=== PATIENT | male | born 1950 | race Hispanic/Latino ===

== ENCOUNTER 2020-11-15 05:57 | Inpatient (IN) | payer MEDICARE ==
[2020-11-15] MEDS ORDERED: NON-FORMULARY EACH (Melatonin [Melatonin 3mg Tab] 3 MG Tablet) PO PRN (10:00)
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
[2020-11-15 11:44] LABS: Basophils # (Auto) 0.1 K/mm3 (0.0-0.1); Basophils % (Auto) 0.7 % (0.0-1.8); Eosinophils # (Auto) 0.1 K/mm3 (0.0-0.4); Eosinophils % (Auto) 0.9 % (0.0-4.3); Hematocrit 46.6 % (35.5-45.6); Hemoglobin 15.5 gm/dl (11.8-15.2); Lymphocytes # (Auto) 2.2 K/mm3 (1.2-5.4); Lymphocytes % (Auto) 26.9 % (13.4-35.0); Mean Corpuscular HGB Conc 33 % (32-34); Mean Corpuscular Volume 85 fl (84-94); Monocytes # (Auto) 0.8 K/mm3 (0.0-0.8); Monocytes % (Auto) 9.4 % (0.0-7.3); Platelet Count 310 K/mm3 (140-440); Red Blood Count 5.51 M/mm3 (3.65-5.03); Red Cell Distribution Width 14.2 % (13.2-15.2)
[2020-11-15 12:03] LABS: Alanine Aminotransferase 16 units/L (7-56); BUN/Creatinine Ratio 20; Blood Urea Nitrogen 20 mg/dL (9-20); Calcium 9.2 mg/dL (8.4-10.2); Chol/HDL Ratio 3.33 %; HDL Cholesterol 57 mg/dL (40-59); Hemolysis Index 6; LDL Cholesterol,Direct 108 mg/dL (50-130)
[2020-11-15] MEDS ORDERED: risperiDONE 1 MG TAB PO SCH (22:00)
[2020-11-15] MEDS ORDERED: NON-FORMULARY EACH (Gabapentin [Neurontin] 600 MG Tablet) PO SCH (22:00)
[2020-11-15] MEDS: traZODone 50 MG TAB PO SCH (22:25)
[2020-11-15] MEDS: GABAPENTIN 300 MG CAP PO SCH (22:27)
--- NOTE | 2020-11-16 08:37 | Progress Note ---
Subjective Date of service: 11/16/20 Principal diagnosis: (1) Schizophrenia in remission Subjective Comment: Zoe Nurse: Since patient's admission he has spent his time in the activity watching tv and interacting with his peers. He presents as happy and content. His appetite is good. Patient is medication compliant. Will continue to monitor patient for safety. Psych Progress Patient presents as euthymic, appears to be in a great mood, excessively compl imenting me and smilling then patient began to ask me questions about what you call in a hole in a heart since "I am a doctor", he then said or maybe in aorta. Patient states I look really good, but i redirected patient to eat his food. Reason for continuing acute in patient psychiatric hospitalization: hx of sudden unprovoked agitated behv, endorses hearing voices, complicated by dementia, will need to observe and monitor for mood stability REVIEW OF SYSTEMS Constitutional: Negative for weight loss ENT: Negative for stridor Respiratory: Negative for cough or hemoptysis All other systems reviewed and are negative MENTAL STATUS EXAMINATION General Appearance and Behavior: Age appropriate, good hygiene, wearing appropriate clothes, poor eye contact, cooperative with questioning. Cooperation: Engaged Psychomotor Behavior: Psychomotor normal Mood: so-so Affect and affective range: congruent with mood Thought Process:illogical Thought Content: visual Hallucinations Speech: Normal rate volume and rythm Intellectual Functioning: normal Suicidal Ideation: Denies SI Homicidal Ideation: denies Impulse Control: Impaired Insight and Judgment: Impaired Memory: Short term memory normal Attention: Divided attention impaired Orientation: Alert, oriented Assessment and Plan - Psychiatric problem (1) Schizophrenia in remission Current Visit: Yes Status: Acute F20.9 Treatment Plan Risperidone inceased to 1mg BID Patient admitted for inpatient psychiatric evaluation, medication adjustment and close monitoring The patient's behavior, mood, sleep and appetite will be closely monitored. Patient enrolled in individual and group therapeutic sessions and encouraged to attend. Patient provided with a safe and structured environment. Patient's physical health needs will be addressed by the Hospitalist. Hospitalist Consulted Labs including CBC, CMP, Lipid profile and Hemoglobin A1C levels ordered for baseline reference Social Assessment will be completed and the Coordinator Of Library Services will work with patient and family to ensure a suitable and safe disposition Medication adjustment will be made as clinically indicated Usual Wellness Religion/Preservation: - Start Trazodone 50 mg po QHS & 50 mg po QHS PRN between 10 PM & 2 AM for insomnia - Start Melatonin 5 mg po QHS to promote circadian rhythm - Start [place]-3 for brain health, reduce impulsivity, and as adjunctive treatment for mood disorder, continue upon discharge given overall benefits. - Start B1 prophylaxis with 200 mg po for 5 days The patient agreed on the treatment plan, understood the risk, benefit, alternative treatment, potential consequence of no treatment, and gave informed consent. Initial Certification Inpatient psych services: I certify that the inpatient psychiatric services are required for treatment that could reasonably be expected to improve the patient's condition. Estimated days: 6 Post hospital care: primary care provider, psychiatric provider Legal Status: Voluntary Reaction to Hospitalization: Accepting Medications and Allergies Allergies Allergy/AdvReac Type Severity Reaction Status Date / Time No Known Allergies Allergy Verified 11/03/17 10:49 Home Medications Medication Instructions Recorded Confirmed Last Taken Type Acetaminophen [Tylenol Extra 1,000 mg PO Q8HR PRN 11/13/20 11/15/20 Unknown History Strength] Calcium Carbonate/Vitamin D3 1 each PO Q12HR 11/13/20 11/15/20 Unknown History [Calcium 500 mg Chewable Tablet] Cholecalciferol (Vitamin D3) 5,000 unit PO ONCE 11/13/20 11/15/20 Unknown History [Vitamin D3] Donepezil HCl [Donepezil HCl Odt] 10 mg PO QHS 11/13/20 11/15/20 Unknown History Furosemide [Lasix] 20 mg PO QDAY 11/13/20 11/15/20 Unknown History Gabapentin [Neurontin] 300 mg PO QHS 11/13/20 11/15/20 Unknown History Levothyroxine [Synthroid] 25 mcg PO QAM 11/13/20 11/15/20 Unknown History Magnesium Hydroxide [Milk of 30 ml PO Q8HR PRN 11/13/20 11/15/20 Unknown History Magnesia] Melatonin [Melatonin 3MG TAB] 3 mg PO Q24HR PRN 11/13/20 11/15/20 Unknown History Memantine [Namenda] 10 mg PO BID 11/13/20 11/15/20 Unknown History Polyethylene Glycol 1450 17 gm MC QDAY PRN 11/13/20 11/15/20 Unknown History Potassium Chloride [K-Dur] 10 meq PO QDAY 11/13/20 11/15/20 Unknown History risperiDONE [RisperDAL] 0.5 mg PO QHS 11/13/20 11/15/20 Unknown History Active Meds: Active Medications Gabapentin (Gabapentin 300 Mg Cap) 300 mg PO QHS [facility] Last Admin: 11/15/20 22:27 Dose: 300 mg Documented by: Levothyroxine Sodium (Levothyroxine 25 Mcg Tab) 50 mcg PO QAM [facility] Miscellaneous Medication (Melatonin [Melatonin 3mg Tab]) 3 mg PO Q24HR PRN PRN Reason: Insomnia Risperidone (Risperidone 1 Mg Tab) 1 mg PO QHS [facility] Last Admin: 11/15/20 22:25 Dose: 1 mg Documented by: Trazodone HCl (Trazodone 50 Mg Tab) 50 mg PO QHS [facility] Last Admin: 11/15/20 22:25 Dose: 50 mg Documented by: Results - Results Labs/Vitals: Laboratory Last Values WBC 8.1 K/mm3 (4.5-11.0) 11/15/20 10:44 RBC 5.51 M/mm3 (3.65-5.03) H 11/15/20 10:44 Hgb 15.5 gm/dl (11.8-15.2) H 11/15/20 10:44 Hct 46.6 % (35.5-45.6) H 11/15/20 10:44 MCV 85 fl (84-94) 11/15/20 10:44 MCH 28 pg (28-32) 11/15/20 10:44 MCHC 33 % (32-34) 11/15/20 10:44 RDW 14.2 % (13.2-15.2) 11/15/20 10:44 Plt Count 310 K/mm3 (140-440) 11/15/20 10:44 Lymph % (Auto) 26.9 % (13.4-35.0) 11/15/20 10:44 [place] % (Auto) 9.4 % (0.0-7.3) H 11/15/20 10:44 Eos % (Auto) 0.9 % (0.0-4.3) 11/15/20 10:44 Baso % (Auto) 0.7 % (0.0-1.8) 11/15/20 10:44 Lymph # (Auto) 2.2 K/mm3 (1.2-5.4) 11/15/20 10:44 [place] # (Auto) 0.8 K/mm3 (0.0-0.8) 11/15/20 10:44 Eos # (Auto) 0.1 K/mm3 (0.0-0.4) 11/15/20 10:44 Baso # (Auto) 0.1 K/mm3 (0.0-0.1) 11/15/20 10:44 Seg Neutrophils % 62.1 % (40.0-70.0) 11/15/20 10:44 Seg Neutrophils # 5.1 K/mm3 (1.8-7.7) 11/15/20 10:44 Sodium 137 mmol/L (137-145) 11/15/20 10:44 Potassium 3.9 mmol/L (3.6-5.0) 11/15/20 10:44 Chloride 99.9 mmol/L (98-107) 11/15/20 10:44 Carbon Dioxide 27 mmol/L (22-30) 11/15/20 10:44 Anion Gap 14 mmol/L 11/15/20 10:44 BUN 20 mg/dL (9-20) 11/15/20 10:44 Creatinine 1.0 mg/dL (0.8-1.3) 11/15/20 10:44 Estimated GFR > 60 ml/min 11/15/20 10:44 BUN/Creatinine Ratio 20 % 11/15/20 10:44 Glucose 114 mg/dL (75-100) H 11/15/20 10:44 POC Glucose 131 mg/dL (70-105) H 11/15/20 08:42 Hemoglobin A1c 5.5 % (4-6) 11/15/20 10:44 Calcium 9.2 mg/dL (8.4-10.2) 11/15/20 10:44 Total Bilirubin 0.30 mg/dL (0.1-1.2) 11/15/20 10:44 AST 19 units/L (5-40) 11/15/20 10:44 ALT 16 units/L (7-56) 11/15/20 10:44 Alkaline Phosphatase 85 units/L (35-129) 11/15/20 10:44 Total Protein 7.2 g/dL (6.3-8.2) 11/15/20 10:44 Albumin 4.0 g/dL (3.9-5) 11/15/20 10:44 Albumin/Globulin Ratio 1.3 % 11/15/20 10:44 Triglycerides 183 mg/dL (2-149) H 11/15/20 10:44 Cholesterol 190 mg/dL (50-199) 11/15/20 10:44 LDL Cholesterol Direct 108 mg/dL (50-130) 11/15/20 10:44 HDL Cholesterol 57 mg/dL (40-59) 11/15/20 10:44 Cholesterol/HDL Ratio 3.33 % 11/15/20 10:44 TSH 6.840 mlU/mL (0.270-4.200) H 11/15/20 10:44 Last Vital Signs Temp 98.7 F 11/15/20 19:36 Pulse 69 11/15/20 19:36 Resp 20 11/15/20 19:36 BP 121/64 11/15/20 19:36 Pulse Ox 95 11/15/20 19:36
[2020-11-16] MEDS: LEVOTHYROXINE 25 MCG TAB PO SCH (09:14)
[2020-11-16] MEDS: risperiDONE 1 MG TAB PO SCH ×2 (09:14→21:48)
[2020-11-16] MEDS ORDERED: ACETAMINOPHEN 500 MG PO PRN (10:46)
--- NOTE | 2020-11-16 10:46 | Consultation ---
History of Present Illness - Reason for Consult Consult date: 11/15/20 Medical Management Requesting physician: MACARIO REYNOSO - History of Present Illness 70 YO Male with Vascular Dementia with Behavioral Disturbance, Cerebral Atherosclerosis, HTN, CKD, GERD, Bipolar Disorder, Schizophrenia, Hypothyroidism, Chronic Constipation currently on bowel regimen. Pt admitted to [facility] for Psychiatric stabilization. Consult placed by Dr. Reynoso for Psychiatric stabilization. Patient seen and evaluated in his room. Patient denies fever, chills, chest pain, palpitation productive cough, skin rash, recent ill contacts or known exposure to COVID-19. No reported nursing events. Past History Past Medical History: GERD, hypertension, hypothyroidism Past Surgical History: No surgical history, Other (Reviewed) Social history: single. denies: smoking, alcohol abuse Family history: hypertension Medications and Allergies Allergies Allergy/AdvReac Type Severity Reaction Status Date / Time No Known Allergies Allergy Verified 11/03/17 10:49 Home Medications Medication Instructions Recorded Confirmed Last Taken Type Acetaminophen [Tylenol Extra 1,000 mg PO Q8HR PRN 11/13/20 11/15/20 Unknown History Strength] Calcium Carbonate/Vitamin D3 1 each PO Q12HR 11/13/20 11/15/20 Unknown History [Calcium 500 mg Chewable Tablet] Cholecalciferol (Vitamin D3) 5,000 unit PO ONCE 11/13/20 11/15/20 Unknown History [Vitamin D3] Donepezil HCl [Donepezil HCl Odt] 10 mg PO QHS 11/13/20 11/15/20 Unknown History Furosemide [Lasix] 20 mg PO QDAY 11/13/20 11/15/20 Unknown History Gabapentin [Neurontin] 300 mg PO QHS 11/13/20 11/15/20 Unknown History Levothyroxine [Synthroid] 25 mcg PO QAM 11/13/20 11/15/20 Unknown History Magnesium Hydroxide [Milk of 30 ml PO Q8HR PRN 11/13/20 11/15/20 Unknown History Magnesia] Melatonin [Melatonin 3MG TAB] 3 mg PO Q24HR PRN 11/13/20 11/15/20 Unknown History Memantine [Namenda] 10 mg PO BID 11/13/20 11/15/20 Unknown History Polyethylene Glycol 1450 17 gm MC QDAY PRN 11/13/20 11/15/20 Unknown History Potassium Chloride [K-Dur] 10 meq PO QDAY 11/13/20 11/15/20 Unknown History risperiDONE [RisperDAL] 0.5 mg PO QHS 11/13/20 11/15/20 Unknown History Active Meds: Active Medications Gabapentin (Gabapentin 300 Mg Cap) 300 mg PO QHS [facility] Last Admin: 11/15/20 22:27 Dose: 300 mg Documented by: Levothyroxine Sodium (Levothyroxine 25 Mcg Tab) 50 mcg PO 0600 [facility] Last Admin: 11/16/20 09:14 Dose: 50 mcg Documented by: Miscellaneous Medication (Melatonin [Melatonin 3mg Tab]) 3 mg PO Q24HR PRN PRN Reason: Insomnia Risperidone (Risperidone 1 Mg Tab) 1 mg PO BID [facility] Last Admin: 11/16/20 09:14 Dose: 1 mg Documented by: Trazodone HCl (Trazodone 50 Mg Tab) 50 mg PO QHS [facility] Last Admin: 11/15/20 22:25 Dose: 50 mg Documented by: Review of Systems Constitutional: no weight loss, no fever, no chills, no sweats Ears, nose, mouth and throat: no ear pain, no ear discharge, no decreased hearing, no nose pain, no nasal congestion Cardiovascular: no chest pain, no palpitations Respiratory: no cough, no cough with sputum, no excessive sputum, no hemoptysis Gastrointestinal: no abdominal pain, no nausea, no diarrhea Genitourinary Male: no hematuria, no flank pain, no urinary frequency, no urinary hesitancy, no incontinence Rectal: no pain, no incontinence Musculoskeletal: no neck pain, no shooting arm pain, no low back pain Integumentary: no rash, no redness, no sores, no jaundice Neurological: no head injury, no weakness, no parathesias, no tingling, no seizures Endocrine: no cold intolerance, no heat intolerance, no excessive thirst, no polyuria, no nocturia Hematologic/Lymphatic: no lymphadenopathy Allergic/Immunologic: no allergic rhinitis Exam - Constitutional Vitals: Temp Pulse Resp BP Pulse Ox 98.7 F 69 20 121/64 95 11/15/20 19:36 11/15/20 19:36 11/15/20 19:36 11/15/20 19:36 11/15/20 19:36 General appearance: Present: no acute distress, well-nourished - EENT Eyes: Present: PERRL ENT: hearing intact, clear oral mucosa - Neck Neck: Present: supple, normal ROM - Respiratory Respiratory effort: normal Respiratory: bilateral: CTA - Cardiovascular Heart Sounds: Present: S1 & S2. Absent: rub, click - Extremities Extremities: pulses symmetrical, No edema Peripheral Pulses: within normal limits - Abdominal General gastrointestinal: Present: soft, non-tender, non-distended, normal bowel sounds Male genitourinary: Present: normal - Integumentary Integumentary: Present: clear, warm, dry - Musculoskeletal Musculoskeletal: gait normal, strength equal bilaterally - Psychiatric Psychiatric: appropriate mood/affect, intact judgment & insight - Neurologic Neurologic: CNII-XII intact, moves all extremities Results - Labs CBC & Chem 7: 11/15/20 10:44 11/15/20 10:44 Labs: Abnormal lab results 11/15/20 11/15/20 11/15/20 Range/Units 08:42 10:44 10:44 RBC 5.51 H (3.65-5.03) M/mm3 Hgb 15.5 H (11.8-15.2) gm/dl Hct 46.6 H (35.5-45.6) % [place] % (Auto) 9.4 H (0.0-7.3) % Glucose 114 H (75-100) mg/dL POC Glucose 131 H (70-105) mg/dL Triglycerides 183 H (2-149) mg/dL TSH (0.270-4.200) mlU/mL 11/15/20 Range/Units 10:44 RBC (3.65-5.03) M/mm3 Hgb (11.8-15.2) gm/dl Hct (35.5-45.6) % [place] % (Auto) (0.0-7.3) % Glucose (75-100) mg/dL POC Glucose (70-105) mg/dL Triglycerides (2-149) mg/dL TSH 6.840 H (0.270-4.200) mlU/mL Assessment and Plan - Patient Problems (1) Vascular dementia with behavioral disturbance Current Visit: Yes Status: Acute Plan to address problem: Verbal prompting, verbal redirection, supportive care, benzodiazepine therapy as clinically indicated. (2) Cerebral atherosclerosis Current Visit: Yes Status: Acute Plan to address problem: Risk factor reduction therapy, antiplatelet therapy, supportive care. (3) Hypertension Current Visit: Yes Status: Acute Qualifiers: Hypertension type: essential hypertension Qualified Code(s): I10 - Essential (primary) hypertension Plan to address problem: Monitor blood pressure every shift, continue medical management. (4) CKD (chronic kidney disease) Current Visit: Yes Status: Acute Plan to address problem: Continue medical management, supportive care. Outpatient nephrology follow-up. (5) GERD (gastroesophageal reflux disease) Current Visit: Yes Status: Acute Qualifiers: Esophagitis presence: without esophagitis Qualified Code(s): K21.9 - Gastro-esophageal reflux disease without esophagitis Plan to address problem: PPI therapy, supportive care. [place] diet.
[2020-11-16] MEDS ORDERED: MAGNESIUM HYDROXIDE (MOM) ORAL LIQD UDC PO PRN (16:00)
[2020-11-16] MEDS ORDERED: ACETAMINOPHEN 500 MG TAB PO PRN (16:00)
[2020-11-16] MEDS: CHOLECALCIFEROL (VIT D3) 5,000 UNIT TAB PO SCH (17:46)
[2020-11-16] MEDS ORDERED: POLYETHYLENE GLYCOL 3350 17 GM POWDER PO PRN (21:33)
[2020-11-16] MEDS: GABAPENTIN 300 MG CAP PO SCH (21:48)
[2020-11-16] MEDS: DONEPEZIL 10 MG TAB PO SCH (21:48)
[2020-11-16] MEDS: MEMANTINE 10 MG TAB PO SCH (21:48)
[2020-11-16] MEDS: traZODone 50 MG TAB PO SCH (21:48)
[2020-11-16] MEDS ORDERED: NON-FORMULARY EACH (Donepezil Hcl [Donepezil Hcl Odt] 10 MG Tab.Rapdis) PO SCH (22:00)
[2020-11-16] MEDS: CALCIUM CARBONATE/VITAMIN D3 500 MG-200 UNIT TAB PO SCH (22:15)
[2020-11-17] MEDS: LEVOTHYROXINE 25 MCG TAB PO SCH (05:58)
--- NOTE | 2020-11-17 08:40 | Progress Note ---
Subjective Date of service: 11/17/20 Principal diagnosis: (1) Schizophrenia in remission Subjective Comment: [facility] Nurse:Last evening the patient spent in the activity room interacting with his peers. He presents as superficially bright. He denies si/hi/ah/vh. Patient has a good appetite and he is medication compliant. Overnight the patient rested quietly and slept 8 hours. Will continue to monitor patient for safety. Psych Progress Patient seen this a.m., patient enjoying breakfast states breakfast has been very good, patient complemented me stating that I am looking good she is in which mid to basal life if possible I asked patient what that means patient will be unable to explain. Patient does state that he knows he needs to take a shower this a.m. again patient is observed with biology and human based organ systems, today patient is talking about the eyes. Talks about about blurry vision when waking up, that clears away, then the concept of seeing, images, colors etc. Reason for continuing acute in patient psychiatric hospitalization: hx of sudden unprovoked agitated behv, endorses hearing voices, complicated by dementia, will need to observe and monitor for mood stability REVIEW OF SYSTEMS Constitutional: Negative for weight loss ENT: Negative for stridor Respiratory: Negative for cough or hemoptysis All other systems reviewed and are negative MENTAL STATUS EXAMINATION General Appearance and Behavior: Age appropriate, good hygiene, wearing appropriate clothes, poor eye contact, cooperative with questioning. Cooperation: Engaged Psychomotor Behavior: Psychomotor normal Mood: so-so Affect and affective range: congruent with mood Thought Process:illogical Thought Content: visual Hallucinations Speech: Normal rate volume and rythm Intellectual Functioning: normal Suicidal Ideation: Denies SI Homicidal Ideation: denies Impulse Control: Impaired Insight and Judgment: Impaired Memory: Short term memory normal Attention: Divided attention impaired Orientation: Alert, oriented Assessment and Plan - Psychiatric problem (1) Schizophrenia in remission Current Visit: Yes Status: Acute F20.9 Treatment Plan [place] risperidone Patient admitted for inpatient psychiatric evaluation, medication adjustment and close monitoring The patient's behavior, mood, sleep and appetite will be closely monitored. Patient enrolled in individual and group therapeutic sessions and encouraged to attend. Patient provided with a safe and structured environment. Patient's physical health needs will be addressed by the Hospitalist. Hospitalist Consulted Labs including CBC, CMP, Lipid profile and Hemoglobin A1C levels ordered for baseline reference Social Assessment will be completed and the Purse Framer will work with patient and family to ensure a suitable and safe disposition Medication adjustment will be made as clinically indicated Usual Wellness Cheondoism/Preservation: - Start Trazodone 50 mg po QHS & 50 mg po QHS PRN between 10 PM & 2 AM for insomnia - Start Melatonin 5 mg po QHS to promote circadian rhythm - Start [place]-3 for brain health, reduce impulsivity, and as adjunctive treatment for mood disorder, continue upon discharge given overall benefits. - Start B1 prophylaxis with 200 mg po for 5 days The patient agreed on the treatment plan, understood the risk, benefit, alternative treatment, potential consequence of no treatment, and gave informed consent. Initial Certification Inpatient psych services: I certify that the inpatient psychiatric services are required for treatment that could reasonably be expected to improve the patient's condition. Estimated days: Post hospital care: primary care provider, psychiatric provider Legal Status: Voluntary Reaction to Hospitalization: Accepting Medications and Allergies Allergies Allergy/AdvReac Type Severity Reaction Status Date / Time No Known Allergies Allergy Verified 11/03/17 10:49 Home Medications Medication Instructions Recorded Confirmed Last Taken Type Acetaminophen [Tylenol Extra 1,000 mg PO Q8HR PRN 11/13/20 11/15/20 Unknown History Strength] Calcium Carbonate/Vitamin D3 1 each PO Q12HR 11/13/20 11/15/20 Unknown History [Calcium 500 mg Chewable Tablet] Cholecalciferol (Vitamin D3) 5,000 unit PO ONCE 11/13/20 11/15/20 Unknown History [Vitamin D3] Donepezil HCl [Donepezil HCl Odt] 10 mg PO QHS 11/13/20 11/15/20 Unknown History Furosemide [Lasix] 20 mg PO QDAY 11/13/20 11/15/20 Unknown History Gabapentin [Neurontin] 300 mg PO QHS 11/13/20 11/15/20 Unknown History Levothyroxine [Synthroid] 25 mcg PO QAM 11/13/20 11/15/20 Unknown History Magnesium Hydroxide [Milk of 30 ml PO Q8HR PRN 11/13/20 11/15/20 Unknown History Magnesia] Melatonin [Melatonin 3MG TAB] 3 mg PO Q24HR PRN 11/13/20 11/15/20 Unknown History Memantine [Namenda] 10 mg PO BID 11/13/20 11/15/20 Unknown History Polyethylene Glycol 1450 17 gm MC QDAY PRN 11/13/20 11/15/20 Unknown History Potassium Chloride [K-Dur] 10 meq PO QDAY 11/13/20 11/15/20 Unknown History risperiDONE [RisperDAL] 0.5 mg PO QHS 11/13/20 11/15/20 Unknown History Active Meds: Active Medications Acetaminophen (Acetaminophen 500 Mg Tab) 1,000 mg PO Q8HR PRN PRN Reason: Pain , Severe (7-10) Calcium/Vitamin D (Calcium Carbonate/Vitamin D3 500 Mg-200 Unit Tab) 1 each PO Q12HR [facility] Last Admin: 11/16/20 22:15 Dose: 1 each Documented by: Cholecalciferol (Cholecalciferol (Vit D3) 5,000 Unit Tab) 5,000 unit PO DAILY [facility] Last Admin: 11/16/20 17:46 Dose: Not Given Documented by: Donepezil HCl (Donepezil 10 Mg Tab) 10 mg PO QHS [facility] Last Admin: 11/16/20 21:48 Dose: 10 mg Documented by: Furosemide (Furosemide 20 Mg Tab) 20 mg PO QDAY [facility] Gabapentin (Gabapentin 300 Mg Cap) 300 mg PO QHS [facility] Last Admin: 11/16/20 21:48 Dose: 300 mg Documented by: Levothyroxine Sodium (Levothyroxine 25 Mcg Tab) 50 mcg PO 0600 [facility] Last Admin: 11/17/20 05:58 Dose: 50 mcg Documented by: Magnesium Hydroxide (Magnesium Hydroxide (Mom) Oral Liqd Udc) 30 ml PO Q8HR PRN PRN Reason: Constipation Memantine (Memantine 10 Mg Tab) 10 mg PO BID [facility] Last Admin: 11/16/20 21:48 Dose: 10 mg Documented by: Miscellaneous Medication (Melatonin [Melatonin 3mg Tab]) 3 mg PO Q24HR PRN PRN Reason: Insomnia Polyethylene Glycol (Polyethylene Glycol 3350 17 Gm Powder) 17 gm PO QDAY PRN PRN Reason: Constipation Potassium Chloride (Potassium Chloride Er 10 Meq Tab) 10 meq PO QDAY [facility] Risperidone (Risperidone 1 Mg Tab) 1 mg PO BID [facility] Last Admin: 11/16/20 21:48 Dose: 1 mg Documented by: Trazodone HCl (Trazodone 50 Mg Tab) 50 mg PO QHS [facility] Last Admin: 11/16/20 21:48 Dose: 50 mg Documented by: Results - Results Labs/Vitals: Laboratory Last Values WBC 8.1 K/mm3 (4.5-11.0) 11/15/20 10:44 RBC 5.51 M/mm3 (3.65-5.03) H 11/15/20 10:44 Hgb 15.5 gm/dl (11.8-15.2) H 11/15/20 10:44 Hct 46.6 % (35.5-45.6) H 11/15/20 10:44 MCV 85 fl (84-94) 11/15/20 10:44 MCH 28 pg (28-32) 11/15/20 10:44 MCHC 33 % (32-34) 11/15/20 10:44 RDW 14.2 % (13.2-15.2) 11/15/20 10:44 Plt Count 310 K/mm3 (140-440) 11/15/20 10:44 Lymph % (Auto) 26.9 % (13.4-35.0) 11/15/20 10:44 [place] % (Auto) 9.4 % (0.0-7.3) H 11/15/20 10:44 Eos % (Auto) 0.9 % (0.0-4.3) 11/15/20 10:44 Baso % (Auto) 0.7 % (0.0-1.8) 11/15/20 10:44 Lymph # (Auto) 2.2 K/mm3 (1.2-5.4) 11/15/20 10:44 [place] # (Auto) 0.8 K/mm3 (0.0-0.8) 11/15/20 10:44 Eos # (Auto) 0.1 K/mm3 (0.0-0.4) 11/15/20 10:44 Baso # (Auto) 0.1 K/mm3 (0.0-0.1) 11/15/20 10:44 Seg Neutrophils % 62.1 % (40.0-70.0) 11/15/20 10:44 Seg Neutrophils # 5.1 K/mm3 (1.8-7.7) 11/15/20 10:44 Sodium 137 mmol/L (137-145) 11/15/20 10:44 Potassium 3.9 mmol/L (3.6-5.0) 11/15/20 10:44 Chloride 99.9 mmol/L (98-107) 11/15/20 10:44 Carbon Dioxide 27 mmol/L (22-30) 11/15/20 10:44 Anion Gap 14 mmol/L 11/15/20 10:44 BUN 20 mg/dL (9-20) 11/15/20 10:44 Creatinine 1.0 mg/dL (0.8-1.3) 11/15/20 10:44 Estimated GFR > 60 ml/min 11/15/20 10:44 BUN/Creatinine Ratio 20 % 11/15/20 10:44 Glucose 114 mg/dL (75-100) H 11/15/20 10:44 POC Glucose 131 mg/dL (70-105) H 11/15/20 08:42 Hemoglobin A1c 5.5 % (4-6) 11/15/20 10:44 Calcium 9.2 mg/dL (8.4-10.2) 11/15/20 10:44 Total Bilirubin 0.30 mg/dL (0.1-1.2) 11/15/20 10:44 AST 19 units/L (5-40) 11/15/20 10:44 ALT 16 units/L (7-56) 11/15/20 10:44 Alkaline Phosphatase 85 units/L (35-129) 11/15/20 10:44 Total Protein 7.2 g/dL (6.3-8.2) 11/15/20 10:44 Albumin 4.0 g/dL (3.9-5) 11/15/20 10:44 Albumin/Globulin Ratio 1.3 % 11/15/20 10:44 Triglycerides 183 mg/dL (2-149) H 11/15/20 10:44 Cholesterol 190 mg/dL (50-199) 11/15/20 10:44 LDL Cholesterol Direct 108 mg/dL (50-130) 11/15/20 10:44 HDL Cholesterol 57 mg/dL (40-59) 11/15/20 10:44 Cholesterol/HDL Ratio 3.33 % 11/15/20 10:44 TSH 6.840 mlU/mL (0.270-4.200) H 11/15/20 10:44 Last Vital Signs Temp 97.8 F 11/16/20 20:21 Pulse 72 11/16/20 20:21 Resp 20 11/16/20 20:21 BP 124/61 11/16/20 20:21 Pulse Ox 96 11/16/20 20:21
[2020-11-17] MEDS: risperiDONE 1 MG TAB PO SCH ×2 (10:25→22:10)
[2020-11-17] MEDS: MEMANTINE 10 MG TAB PO SCH ×2 (10:25→22:10)
[2020-11-17] MEDS: FUROSEMIDE 20 MG TAB PO SCH (10:25)
[2020-11-17] MEDS: CALCIUM CARBONATE/VITAMIN D3 500 MG-200 UNIT TAB PO SCH ×2 (10:42→22:10)
[2020-11-17] MEDS: POTASSIUM CHLORIDE ER 10 MEQ TAB PO SCH (10:42)
[2020-11-17] MEDS: CHOLECALCIFEROL (VIT D3) 5,000 UNIT TAB PO SCH (10:42)
[2020-11-17] MEDS: GABAPENTIN 300 MG CAP PO SCH (22:10)
[2020-11-17] MEDS: DONEPEZIL 10 MG TAB PO SCH (22:10)
[2020-11-17] MEDS: MELATONIN 5 MG TAB PO PRN (22:10)
[2020-11-17] MEDS: traZODone 50 MG TAB PO SCH (22:10)
[2020-11-18] MEDS: LEVOTHYROXINE 50 MCG TAB PO SCH (05:59)
--- NOTE | 2020-11-18 08:46 | Progress Note ---
Subjective Date of service: 11/18/20 Principal diagnosis: (1) Schizophrenia in remission Subjective Comment: [facility] Nurse:[id number] Pt spent most of the day in the activity room, pleasant, interacting with peers, but some times talking talking to himself. Denies SI/HI, med compliant. Staff will continue to monitor. Psych Progress Patient reports sleeping fine, says he is doing really good, likes everything and enjoying his meals. Patient asked why he talks to himself, or is he seeing someone talking to him. Patient reports he talks to himself, he says its because its freedom of speech, first ammendment and then started apologizing. He denies hearing voices. Reason for continuing acute in patient psychiatric hospitalization: So far no behvioral agitation, has been care compliant, though responds to internal stimulus talking to self, will need to observe and monitor for mood stability REVIEW OF SYSTEMS Constitutional: Negative for weight loss ENT: Negative for stridor Respiratory: Negative for cough or hemoptysis All other systems reviewed and are negative MENTAL STATUS EXAMINATION General Appearance and Behavior: Age appropriate, good hygiene, wearing appropriate clothes, poor eye contact, cooperative with questioning. Cooperation: Engaged Psychomotor Behavior: Psychomotor normal Mood: so-so Affect and affective range: congruent with mood Thought Process:illogical Thought Content: visual Hallucinations Speech: Normal rate volume and rythm Intellectual Functioning: normal Suicidal Ideation: Denies SI Homicidal Ideation: denies Impulse Control: Impaired Insight and Judgment: Impaired Memory: Short term memory normal Attention: Divided attention impaired Orientation: Alert, oriented Assessment and Plan - Psychiatric problem (1) Schizophrenia in remission Current Visit: Yes Status: Acute F20.9 Treatment Plan Continue risperidone Patient admitted for inpatient psychiatric evaluation, medication adjustment and close monitoring The patient's behavior, mood, sleep and appetite will be closely monitored. Patient enrolled in individual and group therapeutic sessions and encouraged to attend. Patient provided with a safe and structured environment. Patient's physical health needs will be addressed by the Hospitalist. Hospitalist Consulted Labs including CBC, CMP, Lipid profile and Hemoglobin A1C levels ordered for baseline reference Social Assessment will be completed and the Radiology Practitioner Assistant will work with patient and family to ensure a suitable and safe disposition Medication adjustment will be made as clinically indicated Usual Wellness Religious/Preservation: - Start Trazodone 50 mg po QHS & 50 mg po QHS PRN between 10 PM & 2 AM for insomnia - Start Melatonin 5 mg po QHS to promote circadian rhythm - Start [place]-3 for brain health, reduce impulsivity, and as adjunctive treatment for mood disorder, continue upon discharge given overall benefits. - Start B1 prophylaxis with 200 mg po for 5 days The patient agreed on the treatment plan, understood the risk, benefit, alternative treatment, potential consequence of no treatment, and gave informed consent. Initial Certification Inpatient psych services:5 I certify that the inpatient psychiatric services are required for treatment that could reasonably be expected to improve the patient's condition. Estimated days: Post hospital care: primary care provider, psychiatric provider Legal Status: Voluntary Reaction to Hospitalization: Accepting Medications and Allergies Allergies Allergy/AdvReac Type Severity Reaction Status Date / Time No Known Allergies Allergy Verified 11/03/17 10:49 Home Medications Medication Instructions Recorded Confirmed Last Taken Type Acetaminophen [Tylenol Extra 1,000 mg PO Q8HR PRN 11/13/20 11/15/20 Unknown History Strength] Calcium Carbonate/Vitamin D3 1 each PO Q12HR 11/13/20 11/15/20 Unknown History [Calcium 500 mg Chewable Tablet] Cholecalciferol (Vitamin D3) 5,000 unit PO ONCE 11/13/20 11/15/20 Unknown History [Vitamin D3] Donepezil HCl [Donepezil HCl Odt] 10 mg PO QHS 11/13/20 11/15/20 Unknown History Furosemide [Lasix] 20 mg PO QDAY 11/13/20 11/15/20 Unknown History Gabapentin [Neurontin] 300 mg PO QHS 11/13/20 11/15/20 Unknown History Levothyroxine [Synthroid] 25 mcg PO QAM 11/13/20 11/15/20 Unknown History Magnesium Hydroxide [Milk of 30 ml PO Q8HR PRN 11/13/20 11/15/20 Unknown History Magnesia] Melatonin [Melatonin 3MG TAB] 3 mg PO Q24HR PRN 11/13/20 11/15/20 Unknown History Memantine [Namenda] 10 mg PO BID 11/13/20 11/15/20 Unknown History Polyethylene Glycol 1450 17 gm MC QDAY PRN 11/13/20 11/15/20 Unknown History Potassium Chloride [K-Dur] 10 meq PO QDAY 11/13/20 11/15/20 Unknown History risperiDONE [RisperDAL] 0.5 mg PO QHS 11/13/20 11/15/20 Unknown History Active Meds: Active Medications Acetaminophen (Acetaminophen 500 Mg Tab) 1,000 mg PO Q8HR PRN PRN Reason: Pain , Severe (7-10) Calcium/Vitamin D (Calcium Carbonate/Vitamin D3 500 Mg-200 Unit Tab) 1 each PO Q12HR [facility] Last Admin: 11/17/20 22:10 Dose: 1 each Documented by: Cholecalciferol (Cholecalciferol (Vit D3) 5,000 Unit Tab) 5,000 unit PO DAILY [facility] Last Admin: 11/17/20 10:42 Dose: 5,000 unit Documented by: Donepezil HCl (Donepezil 10 Mg Tab) 10 mg PO QHS [facility] Last Admin: 11/17/20 22:10 Dose: 10 mg Documented by: Furosemide (Furosemide 20 Mg Tab) 20 mg PO QDAY [facility] Last Admin: 11/17/20 10:25 Dose: 20 mg Documented by: Gabapentin (Gabapentin 300 Mg Cap) 300 mg PO QHS [facility] Last Admin: 11/17/20 22:10 Dose: 300 mg Documented by: Levothyroxine Sodium (Levothyroxine 50 Mcg Tab) 50 mcg PO DAILY@0600 [facility] Last Admin: 11/18/20 05:59 Dose: 50 mcg Documented by: Magnesium Hydroxide (Magnesium Hydroxide (Mom) Oral Liqd Udc) 30 ml PO Q8HR PRN PRN Reason: Constipation Melatonin (Melatonin 5 Mg Tab) 5 mg PO QHS PRN PRN Reason: Insomnia Last Admin: 11/17/20 22:10 Dose: 5 mg Documented by: Memantine (Memantine 10 Mg Tab) 10 mg PO BID [facility] Last Admin: 11/17/20 22:10 Dose: 10 mg Documented by: Polyethylene Glycol (Polyethylene Glycol 3350 17 Gm Powder) 17 gm PO QDAY PRN PRN Reason: Constipation Potassium Chloride (Potassium Chloride Er 10 Meq Tab) 10 meq PO QDAY [facility] Last Admin: 11/17/20 10:42 Dose: 10 meq Documented by: Risperidone (Risperidone 1 Mg Tab) 1 mg PO BID [facility] Last Admin: 11/17/20 22:10 Dose: 1 mg Documented by: Trazodone HCl (Trazodone 50 Mg Tab) 50 mg PO QHS [facility] Last Admin: 11/17/20 22:10 Dose: 50 mg Documented by: Results - Results Labs/Vitals: Laboratory Last Values WBC 8.1 K/mm3 (4.5-11.0) 11/15/20 10:44 RBC 5.51 M/mm3 (3.65-5.03) H 11/15/20 10:44 Hgb 15.5 gm/dl (11.8-15.2) H 11/15/20 10:44 Hct 46.6 % (35.5-45.6) H 11/15/20 10:44 MCV 85 fl (84-94) 11/15/20 10:44 MCH 28 pg (28-32) 11/15/20 10:44 MCHC 33 % (32-34) 11/15/20 10:44 RDW 14.2 % (13.2-15.2) 11/15/20 10:44 Plt Count 310 K/mm3 (140-440) 11/15/20 10:44 Lymph % (Auto) 26.9 % (13.4-35.0) 11/15/20 10:44 [place] % (Auto) 9.4 % (0.0-7.3) H 11/15/20 10:44 Eos % (Auto) 0.9 % (0.0-4.3) 11/15/20 10:44 Baso % (Auto) 0.7 % (0.0-1.8) 11/15/20 10:44 Lymph # (Auto) 2.2 K/mm3 (1.2-5.4) 11/15/20 10:44 [place] # (Auto) 0.8 K/mm3 (0.0-0.8) 11/15/20 10:44 Eos # (Auto) 0.1 K/mm3 (0.0-0.4) 11/15/20 10:44 Baso # (Auto) 0.1 K/mm3 (0.0-0.1) 11/15/20 10:44 Seg Neutrophils % 62.1 % (40.0-70.0) 11/15/20 10:44 Seg Neutrophils # 5.1 K/mm3 (1.8-7.7) 11/15/20 10:44 Sodium 137 mmol/L (137-145) 11/15/20 10:44 Potassium 3.9 mmol/L (3.6-5.0) 11/15/20 10:44 Chloride 99.9 mmol/L (98-107) 11/15/20 10:44 Carbon Dioxide 27 mmol/L (22-30) 11/15/20 10:44 Anion Gap 14 mmol/L 11/15/20 10:44 BUN 20 mg/dL (9-20) 11/15/20 10:44 Creatinine 1.0 mg/dL (0.8-1.3) 11/15/20 10:44 Estimated GFR > 60 ml/min 11/15/20 10:44 BUN/Creatinine Ratio 20 % 11/15/20 10:44 Glucose 114 mg/dL (75-100) H 11/15/20 10:44 POC Glucose 131 mg/dL (70-105) H 11/15/20 08:42 Hemoglobin A1c 5.5 % (4-6) 11/15/20 10:44 Calcium 9.2 mg/dL (8.4-10.2) 11/15/20 10:44 Total Bilirubin 0.30 mg/dL (0.1-1.2) 11/15/20 10:44 AST 19 units/L (5-40) 11/15/20 10:44 ALT 16 units/L (7-56) 11/15/20 10:44 Alkaline Phosphatase 85 units/L (35-129) 11/15/20 10:44 Total Protein 7.2 g/dL (6.3-8.2) 11/15/20 10:44 Albumin 4.0 g/dL (3.9-5) 11/15/20 10:44 Albumin/Globulin Ratio 1.3 % 11/15/20 10:44 Triglycerides 183 mg/dL (2-149) H 11/15/20 10:44 Cholesterol 190 mg/dL (50-199) 11/15/20 10:44 LDL Cholesterol Direct 108 mg/dL (50-130) 11/15/20 10:44 HDL Cholesterol 57 mg/dL (40-59) 11/15/20 10:44 Cholesterol/HDL Ratio 3.33 % 11/15/20 10:44 TSH 6.840 mlU/mL (0.270-4.200) H 11/15/20 10:44 Last Vital Signs Temp 98.2 F 11/17/20 19:38 Pulse 52 L 11/17/20 19:38 Resp 18 11/17/20 19:38 BP 98/52 11/17/20 19:38 Pulse Ox 97 11/17/20 19:38
[2020-11-18] MEDS: MEMANTINE 10 MG TAB PO SCH ×2 (11:11→21:04)
[2020-11-18] MEDS: risperiDONE 1 MG TAB PO SCH ×2 (11:11→21:04)
[2020-11-18] MEDS: FUROSEMIDE 20 MG TAB PO SCH (11:12)
[2020-11-18] MEDS: POTASSIUM CHLORIDE ER 10 MEQ TAB PO SCH (11:12)
[2020-11-18] MEDS: CHOLECALCIFEROL (VIT D3) 5,000 UNIT TAB PO SCH (11:12)
[2020-11-18] MEDS: CALCIUM CARBONATE/VITAMIN D3 500 MG-200 UNIT TAB PO SCH ×2 (11:12→21:04)
[2020-11-18] MEDS: DONEPEZIL 10 MG TAB PO SCH (21:03)
[2020-11-18] MEDS: traZODone 50 MG TAB PO SCH (21:03)
[2020-11-18] MEDS: GABAPENTIN 300 MG CAP PO SCH (21:04)
[2020-11-19] MEDS: LEVOTHYROXINE 50 MCG TAB PO SCH (05:59)
--- NOTE | 2020-11-19 09:07 | Progress Note ---
Subjective Date of service: 11/19/20 Principal diagnosis: (1) Schizophrenia in remission Subjective Comment: Zoe Nurse:pt spent last evening in activity room talking and laughing to himself away from other peers, alert and orientedx3, calm and cooperative, able to make needs known, medication compliant, good appetite, no distress noted, will continue to monitor for safety. Psych Progress Patient in breakfast room, seen looking at wall talking to self and laughing hysterically, continues to talk to self in 3rd person manner. Pt asked he is in the hospital, says he is not sure why but probably because he has no where else to go. Patient denies SI, HI but unsure if he hears voices or not, and then put his hands to back of his ears in attempt to be listening to something Reason for continuing acute in patient psychiatric hospitalization: So far no behavioral agitation, secondary internal stimulus response but has been care compliant, will need to observe and monitor for mood stability REVIEW OF SYSTEMS Constitutional: Negative for weight loss ENT: Negative for stridor Respiratory: Negative for cough or hemoptysis All other systems reviewed and are negative MENTAL STATUS EXAMINATION General Appearance and Behavior: Age appropriate, good hygiene, wearing appropriate clothes, poor eye contact, cooperative with questioning. Cooperation: Engaged Psychomotor Behavior: Psychomotor normal Mood: so-so Affect and affective range: congruent with mood Thought Process:illogical Thought Content: visual and verbal Hallucinations Speech: Normal rate volume and rythm Intellectual Functioning: normal Suicidal Ideation: Denies SI Homicidal Ideation: denies Impulse Control: Impaired Insight and Judgment: Impaired Memory: Short term memory normal Attention: Divided attention impaired Orientation: Alert, oriented Assessment and Plan - Psychiatric problem (1) Schizophrenia in remission Current Visit: Yes Status: Acute F20.9 Treatment Plan Continue risperidone Patient admitted for inpatient psychiatric evaluation, medication adjustment and close monitoring The patient's behavior, mood, sleep and appetite will be closely monitored. Patient enrolled in individual and group therapeutic sessions and encouraged to attend. Patient provided with a safe and structured environment. Patient's physical health needs will be addressed by the Hospitalist. Hospitalist Consulted Labs including CBC, CMP, Lipid profile and Hemoglobin A1C levels ordered for baseline reference Social Assessment will be completed and the Ethics Manager will work with patient and family to ensure a suitable and safe disposition Medication adjustment will be made as clinically indicated Usual Wellness [employer]/Preservation: - Start Trazodone 50 mg po QHS & 50 mg po QHS PRN between 10 PM & 2 AM for insomnia - Start Melatonin 5 mg po QHS to promote circadian rhythm - Start [place]-3 for brain health, reduce impulsivity, and as adjunctive treatment for mood disorder, continue upon discharge given overall benefits. - Start B1 prophylaxis with 200 mg po for 5 days The patient agreed on the treatment plan, understood the risk, benefit, alternative treatment, potential consequence of no treatment, and gave informed consent. Initial Certification Inpatient psych services:5 I certify that the inpatient psychiatric services are required for treatment that could reasonably be expected to improve the patient's condition. Estimated days: Post hospital care: primary care provider, psychiatric provider Legal Status: Voluntary Reaction to Hospitalization: Accepting Medications and Allergies Allergies Allergy/AdvReac Type Severity Reaction Status Date / Time No Known Allergies Allergy Verified 11/03/17 10:49 Home Medications Medication Instructions Recorded Confirmed Last Taken Type Acetaminophen [Tylenol Extra 1,000 mg PO Q8HR PRN 11/13/20 11/15/20 Unknown History Strength] Calcium Carbonate/Vitamin D3 1 each PO Q12HR 11/13/20 11/15/20 Unknown History [Calcium 500 mg Chewable Tablet] Cholecalciferol (Vitamin D3) 5,000 unit PO ONCE 11/13/20 11/15/20 Unknown History [Vitamin D3] Donepezil HCl [Donepezil HCl Odt] 10 mg PO QHS 11/13/20 11/15/20 Unknown History Furosemide [Lasix] 20 mg PO QDAY 11/13/20 11/15/20 Unknown History Gabapentin [Neurontin] 300 mg PO QHS 11/13/20 11/15/20 Unknown History Levothyroxine [Synthroid] 25 mcg PO QAM 11/13/20 11/15/20 Unknown History Magnesium Hydroxide [Milk of 30 ml PO Q8HR PRN 11/13/20 11/15/20 Unknown History Magnesia] Melatonin [Melatonin 3MG TAB] 3 mg PO Q24HR PRN 11/13/20 11/15/20 Unknown History Memantine [Namenda] 10 mg PO BID 11/13/20 11/15/20 Unknown History Polyethylene Glycol 1450 17 gm MC QDAY PRN 11/13/20 11/15/20 Unknown History Potassium Chloride [K-Dur] 10 meq PO QDAY 11/13/20 11/15/20 Unknown History risperiDONE [RisperDAL] 0.5 mg PO QHS 11/13/20 11/15/20 Unknown History Active Meds: Active Medications Acetaminophen (Acetaminophen 500 Mg Tab) 1,000 mg PO Q8HR PRN PRN Reason: Pain , Severe (7-10) Calcium/Vitamin D (Calcium Carbonate/Vitamin D3 500 Mg-200 Unit Tab) 1 each PO Q12HR [facility] Last Admin: 11/18/20 21:04 Dose: 1 each Documented by: Cholecalciferol (Cholecalciferol (Vit D3) 5,000 Unit Tab) 5,000 unit PO DAILY [facility] Last Admin: 11/18/20 11:12 Dose: 5,000 unit Documented by: Donepezil HCl (Donepezil 10 Mg Tab) 10 mg PO QHS [facility] Last Admin: 11/18/20 21:03 Dose: 10 mg Documented by: Furosemide (Furosemide 20 Mg Tab) 20 mg PO QDAY [facility] Last Admin: 11/18/20 11:12 Dose: 20 mg Documented by: Gabapentin (Gabapentin 300 Mg Cap) 300 mg PO QHS [facility] Last Admin: 11/18/20 21:04 Dose: 300 mg Documented by: Levothyroxine Sodium (Levothyroxine 50 Mcg Tab) 50 mcg PO DAILY@0600 [facility] Last Admin: 11/19/20 05:59 Dose: 50 mcg Documented by: Magnesium Hydroxide (Magnesium Hydroxide (Mom) Oral Liqd Udc) 30 ml PO Q8HR PRN PRN Reason: Constipation Melatonin (Melatonin 5 Mg Tab) 5 mg PO QHS PRN PRN Reason: Insomnia Last Admin: 11/17/20 22:10 Dose: 5 mg Documented by: Memantine (Memantine 10 Mg Tab) 10 mg PO BID [facility] Last Admin: 11/18/20 21:04 Dose: 10 mg Documented by: Polyethylene Glycol (Polyethylene Glycol 3350 17 Gm Powder) 17 gm PO QDAY PRN PRN Reason: Constipation Potassium Chloride (Potassium Chloride Er 10 Meq Tab) 10 meq PO QDAY [facility] Last Admin: 11/18/20 11:12 Dose: 10 meq Documented by: Risperidone (Risperidone 1 Mg Tab) 1 mg PO BID [facility] Last Admin: 11/18/20 21:04 Dose: 1 mg Documented by: Trazodone HCl (Trazodone 50 Mg Tab) 50 mg PO QHS [facility] Last Admin: 11/18/20 21:03 Dose: 50 mg Documented by: Results - Results Labs/Vitals: Laboratory Last Values WBC 8.1 K/mm3 (4.5-11.0) 11/15/20 10:44 RBC 5.51 M/mm3 (3.65-5.03) H 11/15/20 10:44 Hgb 15.5 gm/dl (11.8-15.2) H 11/15/20 10:44 Hct 46.6 % (35.5-45.6) H 11/15/20 10:44 MCV 85 fl (84-94) 11/15/20 10:44 MCH 28 pg (28-32) 11/15/20 10:44 MCHC 33 % (32-34) 11/15/20 10:44 RDW 14.2 % (13.2-15.2) 11/15/20 10:44 Plt Count 310 K/mm3 (140-440) 11/15/20 10:44 Lymph % (Auto) 26.9 % (13.4-35.0) 11/15/20 10:44 Dent % (Auto) 9.4 % (0.0-7.3) H 11/15/20 10:44 Eos % (Auto) 0.9 % (0.0-4.3) 11/15/20 10:44 Baso % (Auto) 0.7 % (0.0-1.8) 11/15/20 10:44 Lymph # (Auto) 2.2 K/mm3 (1.2-5.4) 11/15/20 10:44 [place] # (Auto) 0.8 K/mm3 (0.0-0.8) 11/15/20 10:44 Eos # (Auto) 0.1 K/mm3 (0.0-0.4) 11/15/20 10:44 Baso # (Auto) 0.1 K/mm3 (0.0-0.1) 11/15/20 10:44 Seg Neutrophils % 62.1 % (40.0-70.0) 11/15/20 10:44 Seg Neutrophils # 5.1 K/mm3 (1.8-7.7) 11/15/20 10:44 Sodium 137 mmol/L (137-145) 11/15/20 10:44 Potassium 3.9 mmol/L (3.6-5.0) 11/15/20 10:44 Chloride 99.9 mmol/L (98-107) 11/15/20 10:44 Carbon Dioxide 27 mmol/L (22-30) 11/15/20 10:44 Anion Gap 14 mmol/L 11/15/20 10:44 BUN 20 mg/dL (9-20) 11/15/20 10:44 Creatinine 1.0 mg/dL (0.8-1.3) 11/15/20 10:44 Estimated GFR > 60 ml/min 11/15/20 10:44 BUN/Creatinine Ratio 20 % 11/15/20 10:44 Glucose 114 mg/dL (75-100) H 11/15/20 10:44 POC Glucose 131 mg/dL (70-105) H 11/15/20 08:42 Hemoglobin A1c 5.5 % (4-6) 11/15/20 10:44 Calcium 9.2 mg/dL (8.4-10.2) 11/15/20 10:44 Total Bilirubin 0.30 mg/dL (0.1-1.2) 11/15/20 10:44 AST 19 units/L (5-40) 11/15/20 10:44 ALT 16 units/L (7-56) 11/15/20 10:44 Alkaline Phosphatase 85 units/L (35-129) 11/15/20 10:44 Total Protein 7.2 g/dL (6.3-8.2) 11/15/20 10:44 Albumin 4.0 g/dL (3.9-5) 11/15/20 10:44 Albumin/Globulin Ratio 1.3 % 11/15/20 10:44 Triglycerides 183 mg/dL (2-149) H 11/15/20 10:44 Cholesterol 190 mg/dL (50-199) 11/15/20 10:44 LDL Cholesterol Direct 108 mg/dL (50-130) 11/15/20 10:44 HDL Cholesterol 57 mg/dL (40-59) 11/15/20 10:44 Cholesterol/HDL Ratio 3.33 % 11/15/20 10:44 TSH 6.840 mlU/mL (0.270-4.200) H 11/15/20 10:44 Last Vital Signs Temp 97.4 F L 05/19/21 22:00 Pulse 49 L 11/18/20 22:00 Resp 18 11/18/20 22:00 BP 116/60 11/18/20 22:00 Pulse Ox 96 11/18/20 22:00
[2020-11-19] MEDS: CHOLECALCIFEROL (VIT D3) 5,000 UNIT TAB PO SCH (09:46)
[2020-11-19] MEDS: risperiDONE 1 MG TAB PO SCH ×2 (09:47→21:49)
[2020-11-19] MEDS: MEMANTINE 10 MG TAB PO SCH ×2 (09:47→21:48)
[2020-11-19] MEDS: POTASSIUM CHLORIDE ER 10 MEQ TAB PO SCH (09:47)
[2020-11-19] MEDS: CALCIUM CARBONATE/VITAMIN D3 500 MG-200 UNIT TAB PO SCH ×2 (09:47→21:51)
[2020-11-19] MEDS: FUROSEMIDE 20 MG TAB PO SCH (09:47)
[2020-11-19] MEDS: traZODone 50 MG TAB PO SCH (21:48)
[2020-11-19] MEDS: DONEPEZIL 10 MG TAB PO SCH (21:48)
[2020-11-19] MEDS: GABAPENTIN 300 MG CAP PO SCH (21:51)
[2020-11-20] MEDS: LEVOTHYROXINE 50 MCG TAB PO SCH (06:40)
--- NOTE | 2020-11-20 08:56 | Progress Note ---
Subjective Date of service: 11/20/20 Principal diagnosis: (1) Schizophrenia in remission Subjective Comment: Per Nurse note: Last evening the patient spent most of his time in his room. He was overheard loudly talking to himself and cursing loudly at unseen someone. When spoken to he can stop listening to ah and answer questions appropriately. He denies si/hi/vh. His appetite is good. Patient was medication compliant. Overnight the patient rested quietly. He presents as sleeping 8 hours. Will continue to monitor patient for safety. The patient was seen today he says he slept well. The patient also says he feels well. When asking about SI/HI, he replies "non whatsoever." He denies halluc inations. Nursing staff has observed the patient talking to himself and cursing at individuals not there. Reason for continuing acute in patient psychiatric hospitalization: So far no behavioral agitation, secondary internal stimulus response but has been care compliant, will need to observe and monitor for mood stability REVIEW OF SYSTEMS Constitutional: Negative for weight loss ENT: Negative for stridor Respiratory: Negative for cough or hemoptysis All other systems reviewed and are negative MENTAL STATUS EXAMINATION General Appearance and Behavior: Age appropriate, good hygiene, wearing appropriate clothes, poor eye contact, cooperative with questioning. Cooperation: Engaged Psychomotor Behavior: Psychomotor normal Mood: so-so Affect and affective range: congruent with mood Thought Process:illogical Thought Content: visual and verbal Hallucinations Speech: Normal rate volume and rythm Intellectual Functioning: normal Suicidal Ideation: Denies SI Homicidal Ideation: denies Impulse Control: Impaired Insight and Judgment: Impaired Memory: Short term memory normal Attention: Divided attention impaired Orientation: Alert, oriented Assessment and Plan (1) Schizophrenia in remission Current Visit: Yes Status: Acute F20.9 Treatment Plan Patient admitted for inpatient psychiatric evaluation, medication adjustment and close monitoring The patient's behavior, mood, sleep and appetite will be closely monitored. Patient enrolled in individual and group therapeutic sessions and encouraged to attend. Patient provided with a safe and structured environment. Patient's physical health needs will be addressed by the Hospitalist. Hospitalist Consulted Labs including CBC, CMP, Lipid profile and Hemoglobin A1C levels ordered for baseline reference Social Assessment will be completed and the Cisco Engineer will work with patient and family to ensure a suitable and safe disposition Medication adjustment will be made as clinically indicated Depakote DR 125mg po BID Usual Wellness [employer]/Preservation: - Start Trazodone 50 mg po QHS & 50 mg po QHS PRN between 10 PM & 2 AM for insomnia - Start Melatonin 5 mg po QHS to promote circadian rhythm - Start [place]-3 for brain health, reduce impulsivity, and as adjunctive treatment for mood disorder, continue upon discharge given overall benefits. - Start B1 prophylaxis with 200 mg po for 5 days The patient agreed on the treatment plan, understood the risk, benefit, alternative treatment, potential consequence of no treatment, and gave informed consent. Estimated days: Post hospital care: primary care provider, psychiatric provider Medications and Allergies Allergies Allergy/AdvReac Type Severity Reaction Status Date / Time No Known Allergies Allergy Verified 11/03/17 10:49 Home Medications Medication Instructions Recorded Confirmed Last Taken Type Acetaminophen [Tylenol Extra 1,000 mg PO Q8HR PRN 11/13/20 11/15/20 Unknown History Strength] Calcium Carbonate/Vitamin D3 1 each PO Q12HR 11/13/20 11/15/20 Unknown History [Calcium 500 mg Chewable Tablet] Cholecalciferol (Vitamin D3) 5,000 unit PO ONCE 11/13/20 11/15/20 Unknown History [Vitamin D3] Donepezil HCl [Donepezil HCl Odt] 10 mg PO QHS 11/13/20 11/15/20 Unknown History Furosemide [Lasix] 20 mg PO QDAY 11/13/20 11/15/20 Unknown History Gabapentin [Neurontin] 300 mg PO QHS 11/13/20 11/15/20 Unknown History Levothyroxine [Synthroid] 25 mcg PO QAM 11/13/20 11/15/20 Unknown History Magnesium Hydroxide [Milk of 30 ml PO Q8HR PRN 11/13/20 11/15/20 Unknown History Magnesia] Melatonin [Melatonin 3MG TAB] 3 mg PO Q24HR PRN 11/13/20 11/15/20 Unknown History Memantine [Namenda] 10 mg PO BID 11/13/20 11/15/20 Unknown History Polyethylene Glycol 1450 17 gm MC QDAY PRN 11/13/20 11/15/20 Unknown History Potassium Chloride [K-Dur] 10 meq PO QDAY 11/13/20 11/15/20 Unknown History risperiDONE [RisperDAL] 0.5 mg PO QHS 11/13/20 11/15/20 Unknown History Active Meds: Active Medications Acetaminophen (Acetaminophen 500 Mg Tab) 1,000 mg PO Q8HR PRN PRN Reason: Pain , Severe (7-10) Calcium/Vitamin D (Calcium Carbonate/Vitamin D3 500 Mg-200 Unit Tab) 1 each PO Q12HR [facility] Last Admin: 11/19/20 21:51 Dose: 1 each Documented by: Cholecalciferol (Cholecalciferol (Vit D3) 5,000 Unit Tab) 5,000 unit PO DAILY [facility] Last Admin: 11/19/20 09:46 Dose: 5,000 unit Documented by: Donepezil HCl (Donepezil 10 Mg Tab) 10 mg PO QHS [facility] Last Admin: 11/19/20 21:48 Dose: 10 mg Documented by: Furosemide (Furosemide 20 Mg Tab) 20 mg PO QDAY [facility] Last Admin: 11/19/20 09:47 Dose: 20 mg Documented by: Gabapentin (Gabapentin 300 Mg Cap) 300 mg PO QHS [facility] Last Admin: 11/19/20 21:51 Dose: 300 mg Documented by: Levothyroxine Sodium (Levothyroxine 50 Mcg Tab) 50 mcg PO DAILY@0600 [facility] Last Admin: 11/20/20 06:40 Dose: 50 mcg Documented by: Magnesium Hydroxide (Magnesium Hydroxide (Mom) Oral Liqd Udc) 30 ml PO Q8HR PRN PRN Reason: Constipation Melatonin (Melatonin 5 Mg Tab) 5 mg PO QHS PRN PRN Reason: Insomnia Last Admin: 11/17/20 22:10 Dose: 5 mg Documented by: Memantine (Memantine 10 Mg Tab) 10 mg PO BID [facility] Last Admin: 11/19/20 21:48 Dose: 10 mg Documented by: Polyethylene Glycol (Polyethylene Glycol 3350 17 Gm Powder) 17 gm PO QDAY PRN PRN Reason: Constipation Potassium Chloride (Potassium Chloride Er 10 Meq Tab) 10 meq PO QDAY [facility] Last Admin: 11/19/20 09:47 Dose: 10 meq Documented by: Risperidone (Risperidone 1 Mg Tab) 1 mg PO BID [facility] Last Admin: 11/19/20 21:49 Dose: 1 mg Documented by: Trazodone HCl (Trazodone 50 Mg Tab) 50 mg PO QHS [facility] Last Admin: 11/19/20 21:48 Dose: 50 mg Documented by: Results - Results Labs/Vitals: Laboratory Last Values WBC 8.1 K/mm3 (4.5-11.0) 11/15/20 10:44 RBC 5.51 M/mm3 (3.65-5.03) H 11/15/20 10:44 Hgb 15.5 gm/dl (11.8-15.2) H 11/15/20 10:44 Hct 46.6 % (35.5-45.6) H 11/15/20 10:44 MCV 85 fl (84-94) 11/15/20 10:44 MCH 28 pg (28-32) 11/15/20 10:44 MCHC 33 % (32-34) 11/15/20 10:44 RDW 14.2 % (13.2-15.2) 11/15/20 10:44 Plt Count 310 K/mm3 (140-440) 11/15/20 10:44 Lymph % (Auto) 26.9 % (13.4-35.0) 11/15/20 10:44 [place] % (Auto) 9.4 % (0.0-7.3) H 11/15/20 10:44 Eos % (Auto) 0.9 % (0.0-4.3) 11/15/20 10:44 Baso % (Auto) 0.7 % (0.0-1.8) 11/15/20 10:44 Lymph # (Auto) 2.2 K/mm3 (1.2-5.4) 11/15/20 10:44 [place] # (Auto) 0.8 K/mm3 (0.0-0.8) 11/15/20 10:44 Eos # (Auto) 0.1 K/mm3 (0.0-0.4) 11/15/20 10:44 Baso # (Auto) 0.1 K/mm3 (0.0-0.1) 11/15/20 10:44 Seg Neutrophils % 62.1 % (40.0-70.0) 11/15/20 10:44 Seg Neutrophils # 5.1 K/mm3 (1.8-7.7) 11/15/20 10:44 Sodium 137 mmol/L (137-145) 11/15/20 10:44 Potassium 3.9 mmol/L (3.6-5.0) 11/15/20 10:44 Chloride 99.9 mmol/L (98-107) 11/15/20 10:44 Carbon Dioxide 27 mmol/L (22-30) 11/15/20 10:44 Anion Gap 14 mmol/L 11/15/20 10:44 BUN 20 mg/dL (9-20) 11/15/20 10:44 Creatinine 1.0 mg/dL (0.8-1.3) 11/15/20 10:44 Estimated GFR > 60 ml/min 11/15/20 10:44 BUN/Creatinine Ratio 20 % 11/15/20 10:44 Glucose 114 mg/dL (75-100) H 11/15/20 10:44 POC Glucose 131 mg/dL (70-105) H 11/15/20 08:42 Hemoglobin A1c 5.5 % (4-6) 11/15/20 10:44 Calcium 9.2 mg/dL (8.4-10.2) 11/15/20 10:44 Total Bilirubin 0.30 mg/dL (0.1-1.2) 11/15/20 10:44 AST 19 units/L (5-40) 11/15/20 10:44 ALT 16 units/L (7-56) 11/15/20 10:44 Alkaline Phosphatase 85 units/L (35-129) 11/15/20 10:44 Total Protein 7.2 g/dL (6.3-8.2) 11/15/20 10:44 Albumin 4.0 g/dL (3.9-5) 11/15/20 10:44 Albumin/Globulin Ratio 1.3 % 11/15/20 10:44 Triglycerides 183 mg/dL (2-149) H 11/15/20 10:44 Cholesterol 190 mg/dL (50-199) 11/15/20 10:44 LDL Cholesterol Direct 108 mg/dL (50-130) 11/15/20 10:44 HDL Cholesterol 57 mg/dL (40-59) 11/15/20 10:44 Cholesterol/HDL Ratio 3.33 % 11/15/20 10:44 TSH 6.840 mlU/mL (0.270-4.200) H 11/15/20 10:44 Last Vital Signs Temp 97.9 F 11/19/20 20:00 Pulse 60 11/19/20 20:00 Resp 18 11/19/20 20:00 BP 151/65 11/19/20 20:00 Pulse Ox 97 11/19/20 20:00
[2020-11-20] MEDS: FUROSEMIDE 20 MG TAB PO SCH (09:20)
[2020-11-20] MEDS: CHOLECALCIFEROL (VIT D3) 5,000 UNIT TAB PO SCH (09:20)
[2020-11-20] MEDS: CALCIUM CARBONATE/VITAMIN D3 500 MG-200 UNIT TAB PO SCH ×2 (09:20→21:33)
[2020-11-20] MEDS: MEMANTINE 10 MG TAB PO SCH ×2 (09:20→21:33)
[2020-11-20] MEDS: POTASSIUM CHLORIDE ER 10 MEQ TAB PO SCH (09:20)
[2020-11-20] MEDS: risperiDONE 1 MG TAB PO SCH ×2 (09:20→21:33)
[2020-11-20] MEDS: DIVALPROEX DR 125 MG TAB PO SCH ×2 (09:23→21:33)
[2020-11-20] MEDS: traZODone 50 MG TAB PO SCH (21:33)
[2020-11-20] MEDS: DONEPEZIL 10 MG TAB PO SCH (21:33)
[2020-11-20] MEDS: GABAPENTIN 300 MG CAP PO SCH (21:33)
[2020-11-21] MEDS: LEVOTHYROXINE 50 MCG TAB PO SCH (05:19)
[2020-11-21] MEDS: POTASSIUM CHLORIDE ER 10 MEQ TAB PO SCH (09:05)
[2020-11-21] MEDS: DIVALPROEX DR 125 MG TAB PO SCH ×2 (09:05→21:33)
[2020-11-21] MEDS: MEMANTINE 10 MG TAB PO SCH ×2 (09:05→21:33)
[2020-11-21] MEDS: FUROSEMIDE 20 MG TAB PO SCH (09:05)
[2020-11-21] MEDS: CHOLECALCIFEROL (VIT D3) 5,000 UNIT TAB PO SCH (09:06)
[2020-11-21] MEDS: risperiDONE 1 MG TAB PO SCH ×2 (09:06→21:33)
[2020-11-21] MEDS: CALCIUM CARBONATE/VITAMIN D3 500 MG-200 UNIT TAB PO SCH ×2 (09:06→21:33)
--- NOTE | 2020-11-21 10:45 | Progress Note ---
Subjective Date of service: 11/21/20 Principal diagnosis: (1) Schizophrenia in remission Subjective Comment: Per Nurse note: pt is compliant with medication, good appetite, still talks to himself, no complaints voiced, slept for approximately 8hrs, no distress noted, will continue to monitor for safety. The patient was seen today he says he slept well. He says he's feeling "pretty good." He denies hallucinations of any kind, although staff has witnessed him talking to himself. He denies SI/HI Reason for continuing acute in patient psychiatric hospitalization: So far no behavioral agitation, secondary internal stimulus response but has been care compliant, will need to observe and monitor for mood stability REVIEW OF SYSTEMS Constitutional: Negative for weight loss ENT: Negative for stridor Respiratory: Negative for cough or hemoptysis All other systems reviewed and are negative MENTAL STATUS EXAMINATION General Appearance and Behavior: Age appropriate, good hygiene, wearing appropriate clothes, poor eye contact, cooperative with questioning. Cooperation: Engaged Psychomotor Behavior: Psychomotor normal Mood: so-so Affect and affective range: congruent with mood Thought Process:illogical Thought Content: visual and verbal Hallucinations Speech: Normal rate volume and rythm Intellectual Functioning: normal Suicidal Ideation: Denies SI Homicidal Ideation: denies Impulse Control: Impaired Insight and Judgment: Impaired Memory: Short term memory normal Attention: Divided attention impaired Orientation: Alert, oriented Assessment and Plan (1) Schizophrenia in remission Current Visit: Yes Status: Acute F20.9 Treatment Plan Patient admitted for inpatient psychiatric evaluation, medication adjustment and close monitoring The patient's behavior, mood, sleep and appetite will be closely monitored. Patient enrolled in individual and group therapeutic sessions and encouraged to attend. Patient provided with a safe and structured environment. Patient's physical health needs will be addressed by the Hospitalist. Hospitalist Consulted Labs including CBC, CMP, Lipid profile and Hemoglobin A1C levels ordered for baseline reference Social Assessment will be completed and the Slip Cover Sewer will work with patient and family to ensure a suitable and safe disposition Medication adjustment will be made as clinically indicated Depakote DR 125mg po BID yesterday No changes today Usual Wellness [employer]/Preservation: - Start Trazodone 50 mg po QHS & 50 mg po QHS PRN between 10 PM & 2 AM for insomnia - Start Melatonin 5 mg po QHS to promote circadian rhythm - Start [place]-3 for brain health, reduce impulsivity, and as adjunctive angel atment for mood disorder, continue upon discharge given overall benefits. - Start B1 prophylaxis with 200 mg po for 5 days The patient agreed on the treatment plan, understood the risk, benefit, alt ernative treatment, potential consequence of no treatment, and gave informed consent. Estimated days: 4 Post hospital care: primary care provider, psychiatric provider Medications and Allergies Allergies Allergy/AdvReac Type Severity Reaction Status Date / Time No Known Allergies Allergy Verified 11/03/17 10:49 Home Medications Medication Instructions Recorded Confirmed Last Taken Type Acetaminophen [Tylenol Extra 1,000 mg PO Q8HR PRN 11/13/20 11/15/20 Unknown History Strength] Calcium Carbonate/Vitamin D3 1 each PO Q12HR 11/13/20 11/15/20 Unknown History [Calcium 500 mg Chewable Tablet] Cholecalciferol (Vitamin D3) 5,000 unit PO ONCE 11/13/20 11/15/20 Unknown History [Vitamin D3] Donepezil HCl [Donepezil HCl Odt] 10 mg PO QHS 11/13/20 11/15/20 Unknown History Furosemide [Lasix] 20 mg PO QDAY 11/13/20 11/15/20 Unknown History Gabapentin [Neurontin] 300 mg PO QHS 11/13/20 11/15/20 Unknown History Levothyroxine [Synthroid] 25 mcg PO QAM 11/13/20 11/15/20 Unknown History Magnesium Hydroxide [Milk of 30 ml PO Q8HR PRN 11/13/20 11/15/20 Unknown History Magnesia] Melatonin [Melatonin 3MG TAB] 3 mg PO Q24HR PRN 11/13/20 11/15/20 Unknown History Memantine [Namenda] 10 mg PO BID 11/13/20 11/15/20 Unknown History Polyethylene Glycol 1450 17 gm MC QDAY PRN 11/13/20 11/15/20 Unknown History Potassium Chloride [K-Dur] 10 meq PO QDAY 11/13/20 11/15/20 Unknown History risperiDONE [RisperDAL] 0.5 mg PO QHS 11/13/20 11/15/20 Unknown History Active Meds: Active Medications Acetaminophen (Acetaminophen 500 Mg Tab) 1,000 mg PO Q8HR PRN PRN Reason: Pain , Severe (7-10) Calcium/Vitamin D (Calcium Carbonate/Vitamin D3 500 Mg-200 Unit Tab) 1 each PO Q12HR [facility] Last Admin: 11/21/20 09:06 Dose: 1 each Documented by: Cholecalciferol (Cholecalciferol (Vit D3) 5,000 Unit Tab) 5,000 unit PO DAILY [facility] Last Admin: 11/21/20 09:06 Dose: 5,000 unit Documented by: Divalproex Sodium (Divalproex Dr 125 Mg Tab) 125 mg PO BID [facility] Last Admin: 11/21/20 09:05 Dose: 125 mg Documented by: Donepezil HCl (Donepezil 10 Mg Tab) 10 mg PO QHS [facility] Last Admin: 11/20/20 21:33 Dose: 10 mg Documented by: Furosemide (Furosemide 20 Mg Tab) 20 mg PO QDAY [facility] Last Admin: 11/21/20 09:05 Dose: 20 mg Documented by: Gabapentin (Gabapentin 300 Mg Cap) 300 mg PO QHS [facility] Last Admin: 11/20/20 21:33 Dose: 300 mg Documented by: Levothyroxine Sodium (Levothyroxine 50 Mcg Tab) 50 mcg PO DAILY@0600 [facility] Last Admin: 11/21/20 05:19 Dose: 50 mcg Documented by: Magnesium Hydroxide (Magnesium Hydroxide (Mom) Oral Liqd Udc) 30 ml PO Q8HR PRN PRN Reason: Constipation Melatonin (Melatonin 5 Mg Tab) 5 mg PO QHS PRN PRN Reason: Insomnia Last Admin: 11/17/20 22:10 Dose: 5 mg Documented by: Memantine (Memantine 10 Mg Tab) 10 mg PO BID [facility] Last Admin: 11/21/20 09:05 Dose: 10 mg Documented by: Polyethylene Glycol (Polyethylene Glycol 3350 17 Gm Powder) 17 gm PO QDAY PRN PRN Reason: Constipation Potassium Chloride (Potassium Chloride Er 10 Meq Tab) 10 meq PO QDAY [facility] Last Admin: 11/21/20 09:05 Dose: 10 meq Documented by: Risperidone (Risperidone 1 Mg Tab) 1 mg PO BID [facility] Last Admin: 11/21/20 09:06 Dose: 1 mg Documented by: Trazodone HCl (Trazodone 50 Mg Tab) 50 mg PO QHS [facility] Last Admin: 11/20/20 21:33 Dose: 50 mg Documented by: Results - Results Labs/Vitals: Laboratory Last Values WBC 8.1 K/mm3 (4.5-11.0) 11/15/20 10:44 RBC 5.51 M/mm3 (3.65-5.03) H 11/15/20 10:44 Hgb 15.5 gm/dl (11.8-15.2) H 11/15/20 10:44 Hct 46.6 % (35.5-45.6) H 11/15/20 10:44 MCV 85 fl (84-94) 11/15/20 10:44 MCH 28 pg (28-32) 11/15/20 10:44 MCHC 33 % (32-34) 11/15/20 10:44 RDW 14.2 % (13.2-15.2) 11/15/20 10:44 Plt Count 310 K/mm3 (140-440) 11/15/20 10:44 Lymph % (Auto) 26.9 % (13.4-35.0) 11/15/20 10:44 [place] % (Auto) 9.4 % (0.0-7.3) H 11/15/20 10:44 Eos % (Auto) 0.9 % (0.0-4.3) 11/15/20 10:44 Baso % (Auto) 0.7 % (0.0-1.8) 11/15/20 10:44 Lymph # (Auto) 2.2 K/mm3 (1.2-5.4) 11/15/20 10:44 [place] # (Auto) 0.8 K/mm3 (0.0-0.8) 11/15/20 10:44 Eos # (Auto) 0.1 K/mm3 (0.0-0.4) 11/15/20 10:44 Baso # (Auto) 0.1 K/mm3 (0.0-0.1) 11/15/20 10:44 Seg Neutrophils % 62.1 % (40.0-70.0) 11/15/20 10:44 Seg Neutrophils # 5.1 K/mm3 (1.8-7.7) 11/15/20 10:44 Sodium 137 mmol/L (137-145) 11/15/20 10:44 Potassium 3.9 mmol/L (3.6-5.0) 11/15/20 10:44 Chloride 99.9 mmol/L (98-107) 11/15/20 10:44 Carbon Dioxide 27 mmol/L (22-30) 11/15/20 10:44 Anion Gap 14 mmol/L 11/15/20 10:44 BUN 20 mg/dL (9-20) 11/15/20 10:44 Creatinine 1.0 mg/dL (0.8-1.3) 11/15/20 10:44 Estimated GFR > 60 ml/min 11/15/20 10:44 BUN/Creatinine Ratio 20 % 11/15/20 10:44 Glucose 114 mg/dL (75-100) H 11/15/20 10:44 POC Glucose 131 mg/dL (70-105) H 11/15/20 08:42 Hemoglobin A1c 5.5 % (4-6) 11/15/20 10:44 Calcium 9.2 mg/dL (8.4-10.2) 11/15/20 10:44 Total Bilirubin 0.30 mg/dL (0.1-1.2) 11/15/20 10:44 AST 19 units/L (5-40) 11/15/20 10:44 ALT 16 units/L (7-56) 11/15/20 10:44 Alkaline Phosphatase 85 units/L (35-129) 11/15/20 10:44 Total Protein 7.2 g/dL (6.3-8.2) 11/15/20 10:44 Albumin 4.0 g/dL (3.9-5) 11/15/20 10:44 Albumin/Globulin Ratio 1.3 % 11/15/20 10:44 Triglycerides 183 mg/dL (2-149) H 11/15/20 10:44 Cholesterol 190 mg/dL (50-199) 11/15/20 10:44 LDL Cholesterol Direct 108 mg/dL (50-130) 11/15/20 10:44 HDL Cholesterol 57 mg/dL (40-59) 11/15/20 10:44 Cholesterol/HDL Ratio 3.33 % 11/15/20 10:44 TSH 6.840 mlU/mL (0.270-4.200) H 11/15/20 10:44 Last Vital Signs Temp 98.4 F 11/21/20 08:54 Pulse 71 11/21/20 08:54 Resp 18 11/21/20 08:54 BP 115/52 11/21/20 08:54 Pulse Ox 98 05/22/21 08:54
[2020-11-21] MEDS: DONEPEZIL 10 MG TAB PO SCH (21:33)
[2020-11-21] MEDS: GABAPENTIN 300 MG CAP PO SCH (21:33)
[2020-11-21] MEDS: MELATONIN 5 MG TAB PO PRN (21:33)
[2020-11-21] MEDS: traZODone 50 MG TAB PO SCH (21:33)
[2020-11-22] MEDS: LEVOTHYROXINE 50 MCG TAB PO SCH (06:56)
[2020-11-22] MEDS: MEMANTINE 10 MG TAB PO SCH ×2 (09:00→21:04)
[2020-11-22] MEDS: POTASSIUM CHLORIDE ER 10 MEQ TAB PO SCH (09:00)
[2020-11-22] MEDS: FUROSEMIDE 20 MG TAB PO SCH (09:00)
[2020-11-22] MEDS: DIVALPROEX DR 125 MG TAB PO SCH ×2 (09:00→21:03)
[2020-11-22] MEDS: CALCIUM CARBONATE/VITAMIN D3 500 MG-200 UNIT TAB PO SCH ×2 (09:00→21:04)
[2020-11-22] MEDS: risperiDONE 1 MG TAB PO SCH ×2 (09:00→21:04)
[2020-11-22] MEDS: CHOLECALCIFEROL (VIT D3) 5,000 UNIT TAB PO SCH (09:00)
--- NOTE | 2020-11-22 10:15 | Progress Note ---
Subjective Date of service: 11/22/20 Principal diagnosis: (1) Schizophrenia in remission Subjective Comment: Per Nurse note: Last evening the patient spent in the activity room minimally interacting with peers. He was smiling. Patient is hyper courteous. He denies si/hi/ah/vh. He was not observed talking to himself. His appetite is good. Patient was medication compliant. Overnight the patient rested quietly. He presents as sleeping 8 hours. Will continue to monitor patient for safety. The patient was seen today, he is talking to another patient. He is smiling and is pleasant. We go to another area to speak. The patient says he feels "good." He denies hallucinations of any kind. He denies SI/HI Reason for continuing acute in patient psychiatric hospitalization: So far no behavioral agitation, secondary internal stimulus response but has been care compliant, will need to observe and monitor for mood stability REVIEW OF SYSTEMS Constitutional: Negative for weight loss ENT: Negative for stridor Respiratory: Negative for cough or hemoptysis All other systems reviewed and are negative MENTAL STATUS EXAMINATION General Appearance and Behavior: Age appropriate, good hygiene, wearing appropriate clothes, poor eye contact, cooperative with questioning. Cooperation: Engaged Psychomotor Behavior: Psychomotor normal Mood: so-so Affect and affective range: congruent with mood Thought Process:illogical Thought Content: visual and verbal Hallucinations Speech: Normal rate volume and rythm Intellectual Functioning: normal Suicidal Ideation: Denies SI Homicidal Ideation: denies Impulse Control: Impaired Insight and Judgment: Impaired Memory: Short term memory normal Attention: Divided attention impaired Orientation: Alert, oriented Assessment and Plan (1) Schizophrenia in remission Current Visit: Yes Status: Acute F20.9 Treatment Plan Patient admitted for inpatient psychiatric evaluation, medication adjustment and close monitoring The patient's behavior, mood, sleep and appetite will be closely monitored. Patient enrolled in individual and group therapeutic sessions and encouraged to attend. Patient provided with a safe and structured environment. Patient's physical health needs will be addressed by the Hospitalist. Hospitalist Consulted Labs including CBC, CMP, Lipid profile and Hemoglobin A1C levels ordered for baseline reference Social Assessment will be completed and the Kardex Clerk will work with patient and family to ensure a suitable and safe disposition Medication adjustment will be made as clinically indicated No changes today Usual Wellness [employer]/Preservation: - Start Trazodone 50 mg po QHS & 50 mg po QHS PRN between 10 PM & 2 AM for insomnia - Start Melatonin 5 mg po QHS to promote circadian rhythm - Start [place]-3 for brain health, reduce impulsivity, and as adjunctive treatment for mood disorder, continue upon discharge given overall benefits. - Start B1 prophylaxis with 200 mg po for 5 days The patient agreed on the treatment plan, understood the risk, benefit, alternative treatment, potential consequence of no treatment, and gave informed consent. Estimated days: 4 Post hospital care: primary care provider, psychiatric provider Medications and Allergies Allergies Allergy/AdvReac Type Severity Reaction Status Date / Time No Known Allergies Allergy Verified 11/03/17 10:49 Home Medications Medication Instructions Recorded Confirmed Last Taken Type Acetaminophen [Tylenol Extra 1,000 mg PO Q8HR PRN 11/13/20 11/15/20 Unknown History Strength] Calcium Carbonate/Vitamin D3 1 each PO Q12HR 11/13/20 11/15/20 Unknown History [Calcium 500 mg Chewable Tablet] Cholecalciferol (Vitamin D3) 5,000 unit PO ONCE 11/13/20 11/15/20 Unknown History [Vitamin D3] Donepezil HCl [Donepezil HCl Odt] 10 mg PO QHS 11/13/20 11/15/20 Unknown History Furosemide [Lasix] 20 mg PO QDAY 11/13/20 11/15/20 Unknown History Gabapentin [Neurontin] 300 mg PO QHS 11/13/20 11/15/20 Unknown History Levothyroxine [Synthroid] 25 mcg PO QAM 11/13/20 11/15/20 Unknown History Magnesium Hydroxide [Milk of 30 ml PO Q8HR PRN 11/13/20 11/15/20 Unknown History Magnesia] Melatonin [Melatonin 3MG TAB] 3 mg PO Q24HR PRN 11/13/20 11/15/20 Unknown History Memantine [Namenda] 10 mg PO BID 11/13/20 11/15/20 Unknown History Polyethylene Glycol 1450 17 gm MC QDAY PRN 11/13/20 11/15/20 Unknown History Potassium Chloride [K-Dur] 10 meq PO QDAY 11/13/20 11/15/20 Unknown History risperiDONE [RisperDAL] 0.5 mg PO QHS 11/13/20 11/15/20 Unknown History Active Meds: Active Medications Acetaminophen (Acetaminophen 500 Mg Tab) 1,000 mg PO Q8HR PRN PRN Reason: Pain , Severe (7-10) Calcium/Vitamin D (Calcium Carbonate/Vitamin D3 500 Mg-200 Unit Tab) 1 each PO Q12HR [facility] Last Admin: 11/22/20 09:00 Dose: 1 each Documented by: Cholecalciferol (Cholecalciferol (Vit D3) 5,000 Unit Tab) 5,000 unit PO DAILY [facility] Last Admin: 11/22/20 09:00 Dose: 5,000 unit Documented by: Divalproex Sodium (Divalproex Dr 125 Mg Tab) 125 mg PO BID [facility] Last Admin: 11/22/20 09:00 Dose: 125 mg Documented by: Donepezil HCl (Donepezil 10 Mg Tab) 10 mg PO QHS [facility] Last Admin: 11/21/20 21:33 Dose: 10 mg Documented by: Furosemide (Furosemide 20 Mg Tab) 20 mg PO QDAY [facility] Last Admin: 11/22/20 09:00 Dose: 20 mg Documented by: Gabapentin (Gabapentin 300 Mg Cap) 300 mg PO QHS [facility] Last Admin: 11/21/20 21:33 Dose: 300 mg Documented by: Levothyroxine Sodium (Levothyroxine 50 Mcg Tab) 50 mcg PO DAILY@0600 [facility] Last Admin: 11/22/20 06:56 Dose: 50 mcg Documented by: Magnesium Hydroxide (Magnesium Hydroxide (Mom) Oral Liqd Udc) 30 ml PO Q8HR PRN PRN Reason: Constipation Melatonin (Melatonin 5 Mg Tab) 5 mg PO QHS PRN PRN Reason: Insomnia Last Admin: 11/21/20 21:33 Dose: 5 mg Documented by: Memantine (Memantine 10 Mg Tab) 10 mg PO BID [facility] Last Admin: 11/22/20 09:00 Dose: 10 mg Documented by: Polyethylene Glycol (Polyethylene Glycol 3350 17 Gm Powder) 17 gm PO QDAY PRN PRN Reason: Constipation Potassium Chloride (Potassium Chloride Er 10 Meq Tab) 10 meq PO QDAY [facility] Last Admin: 11/22/20 09:00 Dose: 10 meq Documented by: Risperidone (Risperidone 1 Mg Tab) 1 mg PO BID [facility] Last Admin: 11/22/20 09:00 Dose: 1 mg Documented by: Trazodone HCl (Trazodone 50 Mg Tab) 50 mg PO QHS [facility] Last Admin: 11/21/20 21:33 Dose: 50 mg Documented by: Results - Results Labs/Vitals: Laboratory Last Values WBC 8.1 K/mm3 (4.5-11.0) 11/15/20 10:44 RBC 5.51 M/mm3 (3.65-5.03) H 11/15/20 10:44 Hgb 15.5 gm/dl (11.8-15.2) H 11/15/20 10:44 Hct 46.6 % (35.5-45.6) H 11/15/20 10:44 MCV 85 fl (84-94) 11/15/20 10:44 MCH 28 pg (28-32) 11/15/20 10:44 MCHC 33 % (32-34) 11/15/20 10:44 RDW 14.2 % (13.2-15.2) 11/15/20 10:44 Plt Count 310 K/mm3 (140-440) 11/15/20 10:44 Lymph % (Auto) 26.9 % (13.4-35.0) 11/15/20 10:44 [place] % (Auto) 9.4 % (0.0-7.3) H 11/15/20 10:44 Eos % (Auto) 0.9 % (0.0-4.3) 11/15/20 10:44 Baso % (Auto) 0.7 % (0.0-1.8) 11/15/20 10:44 Lymph # (Auto) 2.2 K/mm3 (1.2-5.4) 11/15/20 10:44 [place] # (Auto) 0.8 K/mm3 (0.0-0.8) 11/15/20 10:44 Eos # (Auto) 0.1 K/mm3 (0.0-0.4) 11/15/20 10:44 Baso # (Auto) 0.1 K/mm3 (0.0-0.1) 11/15/20 10:44 Seg Neutrophils % 62.1 % (40.0-70.0) 11/15/20 10:44 Seg Neutrophils # 5.1 K/mm3 (1.8-7.7) 11/15/20 10:44 Sodium 137 mmol/L (137-145) 11/15/20 10:44 Potassium 3.9 mmol/L (3.6-5.0) 11/15/20 10:44 Chloride 99.9 mmol/L (98-107) 11/15/20 10:44 Carbon Dioxide 27 mmol/L (22-30) 11/15/20 10:44 Anion Gap 14 mmol/L 11/15/20 10:44 BUN 20 mg/dL (9-20) 11/15/20 10:44 Creatinine 1.0 mg/dL (0.8-1.3) 11/15/20 10:44 Estimated GFR > 60 ml/min 11/15/20 10:44 BUN/Creatinine Ratio 20 % 11/15/20 10:44 Glucose 114 mg/dL (75-100) H 11/15/20 10:44 POC Glucose 131 mg/dL (70-105) H 11/15/20 08:42 Hemoglobin A1c 5.5 % (4-6) 11/15/20 10:44 Calcium 9.2 mg/dL (8.4-10.2) 11/15/20 10:44 Total Bilirubin 0.30 mg/dL (0.1-1.2) 11/15/20 10:44 AST 19 units/L (5-40) 11/15/20 10:44 ALT 16 units/L (7-56) 11/15/20 10:44 Alkaline Phosphatase 85 units/L (35-129) 11/15/20 10:44 Total Protein 7.2 g/dL (6.3-8.2) 11/15/20 10:44 Albumin 4.0 g/dL (3.9-5) 11/15/20 10:44 Albumin/Globulin Ratio 1.3 % 11/15/20 10:44 Triglycerides 183 mg/dL (2-149) H 11/15/20 10:44 Cholesterol 190 mg/dL (50-199) 11/15/20 10:44 LDL Cholesterol Direct 108 mg/dL (50-130) 11/15/20 10:44 HDL Cholesterol 57 mg/dL (40-59) 11/15/20 10:44 Cholesterol/HDL Ratio 3.33 % 11/15/20 10:44 TSH 6.840 mlU/mL (0.270-4.200) H 11/15/20 10:44 Last Vital Signs Temp 98.5 F 11/21/20 19:32 Pulse 58 L 11/21/20 19:32 Resp 17 11/21/20 19:32 BP 133/62 11/21/20 19:32 Pulse Ox 96 11/21/20 19:32
[2020-11-22] MEDS: traZODone 50 MG TAB PO SCH (21:03)
[2020-11-22] MEDS: GABAPENTIN 300 MG CAP PO SCH (21:03)
[2020-11-22] MEDS: DONEPEZIL 10 MG TAB PO SCH (21:04)
[2020-11-23] MEDS: LEVOTHYROXINE 50 MCG TAB PO SCH (06:11)
[2020-11-23] MEDS: POTASSIUM CHLORIDE ER 10 MEQ TAB PO SCH (09:18)
[2020-11-23] MEDS: CHOLECALCIFEROL (VIT D3) 5,000 UNIT TAB PO SCH (09:18)
[2020-11-23] MEDS: DIVALPROEX DR 125 MG TAB PO SCH ×2 (09:18→21:24)
[2020-11-23] MEDS: MEMANTINE 10 MG TAB PO SCH ×2 (09:18→21:25)
[2020-11-23] MEDS: risperiDONE 1 MG TAB PO SCH ×2 (09:18→21:26)
[2020-11-23] MEDS: CALCIUM CARBONATE/VITAMIN D3 500 MG-200 UNIT TAB PO SCH ×2 (09:18→21:26)
[2020-11-23] MEDS: FUROSEMIDE 20 MG TAB PO SCH (09:22)
--- NOTE | 2020-11-23 10:11 | Progress Note ---
Subjective Date of service: 11/23/20 Principal diagnosis: (1) Schizophrenia in remission Subjective Comment: Per Nurse note: Patient rested during the tour with eyes closed, patient responding to internal stimuli but remains on bed, respiration even and unlabored, no signs or symptom of distress noted, bed in lowest position, will continue to monitor. The patient was seen today, he is calm and pleasant. He greats me as I'm walking up. He denies SI/HI or hallucinations of any kind. However, the nursing staff says the patient has been responding to internal stimuli. Reason for continuing acute in patient psychiatric hospitalization: So far no behavioral agitation, but the patient has been responding to interval stimuli at times according to the nursing staff. REVIEW OF SYSTEMS Constitutional: Negative for weight loss ENT: Negative for stridor Respiratory: Negative for cough or hemoptysis All other systems reviewed and are negative MENTAL STATUS EXAMINATION General Appearance and Behavior: Age appropriate, good hygiene, wearing appropriate clothes, poor eye contact, cooperative with questioning. Cooperation: Engaged Psychomotor Behavior: Psychomotor normal Mood: so-so Affect and affective range: congruent with mood Thought Process:illogical Thought Content: visual and verbal Hallucinations Speech: Normal rate volume and rythm Intellectual Functioning: normal Suicidal Ideation: Denies SI Homicidal Ideation: denies Impulse Control: Impaired Insight and Judgment: Impaired Memory: Short term memory normal Attention: Divided attention impaired Orientation: Alert, oriented Assessment and Plan (1) Schizophrenia in remission Current Visit: Yes Status: Acute F20.9 Treatment Plan Patient admitted for inpatient psychiatric evaluation, medication adjustment and close monitoring The patient's behavior, mood, sleep and appetite will be closely monitored. Patient enrolled in individual and group therapeutic sessions and encouraged to attend. Patient provided with a safe and structured environment. Patient's physical health needs will be addressed by the Hospitalist. Javy valencia Consulted Labs including CBC, CMP, Lipid profile and Hemoglobin A1C levels ordered for baseline reference Social Assessment will be completed and the Journalism Teacher will work with patient and family to ensure a suitable and safe disposition Medication adjustment will be made as clinically indicated No changes today Usual Wellness Orthodox/Preservation: - Start Trazodone 50 mg po QHS & 50 mg po QHS PRN between 10 PM & 2 AM for insomnia - Start Melatonin 5 mg po QHS to promote circadian rhythm - Start [place]-3 for brain health, reduce impulsivity, and as adjunctive treatment for mood disorder, continue upon discharge given overall benefits. - Start B1 prophylaxis with 200 mg po for 5 days The patient agreed on the treatment plan, understood the risk, benefit, alternative treatment, potential consequence of no treatment, and gave informed consent. Estimated days: 4 Post hospital care: primary care provider, psychiatric provider Medications and Allergies Allergies Allergy/AdvReac Type Severity Reaction Status Date / Time No Known Allergies Allergy Verified 11/03/17 10:49 Home Medications Medication Instructions Recorded Confirmed Last Taken Type Acetaminophen [Tylenol Extra 1,000 mg PO Q8HR PRN 11/13/20 11/15/20 Unknown History Strength] Calcium Carbonate/Vitamin D3 1 each PO Q12HR 11/13/20 11/15/20 Unknown History [Calcium 500 mg Chewable Tablet] Cholecalciferol (Vitamin D3) 5,000 unit PO ONCE 11/13/20 11/15/20 Unknown Histor y [Vitamin D3] Donepezil HCl [Donepezil HCl Odt] 10 mg PO QHS 11/13/20 11/15/20 Unknown History Furosemide [Lasix] 20 mg PO QDAY 11/13/20 11/15/20 Unknown History Gabapentin [Neurontin] 300 mg PO QHS 11/13/20 11/15/20 Unknown History Levothyroxine [Synthroid] 25 mcg PO QAM 11/13/20 11/15/20 Unknown History Magnesium Hydroxide [Milk of 30 ml PO Q8HR PRN 11/13/20 11/15/20 Unknown History Magnesia] Melatonin [Melatonin 3MG TAB] 3 mg PO Q24HR PRN 11/13/20 11/15/20 Unknown History Memantine [Namenda] 10 mg PO BID 11/13/20 11/15/20 Unknown History Polyethylene Glycol 1450 17 gm MC QDAY PRN 11/13/20 11/15/20 Unknown History Potassium Chloride [K-Dur] 10 meq PO QDAY 11/13/20 11/15/20 Unknown History risperiDONE [RisperDAL] 0.5 mg PO QHS 11/13/20 11/15/20 Unknown History Active Meds: Active Medications Acetaminophen (Acetaminophen 500 Mg Tab) 1,000 mg PO Q8HR PRN PRN Reason: Pain , Severe (7-10) Calcium/Vitamin D (Calcium Carbonate/Vitamin D3 500 Mg-200 Unit Tab) 1 each PO Q12HR [facility] Last Admin: 11/23/20 09:18 Dose: 1 each Documented by: Cholecalciferol (Cholecalciferol (Vit D3) 5,000 Unit Tab) 5,000 unit PO DAILY [facility] Last Admin: 11/23/20 09:18 Dose: 5,000 unit Documented by: Divalproex Sodium (Divalproex Dr 125 Mg Tab) 125 mg PO BID [facility] Last Admin: 11/23/20 09:18 Dose: 125 mg Documented by: Donepezil HCl (Donepezil 10 Mg Tab) 10 mg PO QHS [facility] Last Admin: 11/22/20 21:04 Dose: 10 mg Documented by: Furosemide (Furosemide 20 Mg Tab) 20 mg PO QDAY [facility] Last Admin: 11/23/20 09:22 Dose: 20 mg Documented by: Gabapentin (Gabapentin 300 Mg Cap) 300 mg PO QHS [facility] Last Admin: 11/22/20 21:03 Dose: 300 mg Documented by: Levothyroxine Sodium (Levothyroxine 50 Mcg Tab) 50 mcg PO DAILY@0600 [facility] Last Admin: 11/23/20 06:11 Dose: 50 mcg Documented by: Magnesium Hydroxide (Magnesium Hydroxide (Mom) Oral Liqd Udc) 30 ml PO Q8HR PRN PRN Reason: Constipation Melatonin (Melatonin 5 Mg Tab) 5 mg PO QHS PRN PRN Reason: Insomnia Last Admin: 11/21/20 21:33 Dose: 5 mg Documented by: Memantine (Memantine 10 Mg Tab) 10 mg PO BID [facility] Last Admin: 11/23/20 09:18 Dose: 10 mg Documented by: Polyethylene Glycol (Polyethylene Glycol 3350 17 Gm Powder) 17 gm PO QDAY PRN PRN Reason: Constipation Potassium Chloride (Potassium Chloride Er 10 Meq Tab) 10 meq PO QDAY [facility] Last Admin: 11/23/20 09:18 Dose: 10 meq Documented by: Risperidone (Risperidone 1 Mg Tab) 1 mg PO BID [facility] Last Admin: 11/23/20 09:18 Dose: 1 mg Documented by: Trazodone HCl (Trazodone 50 Mg Tab) 50 mg PO QHS [facility] Last Admin: 11/22/20 21:03 Dose: 50 mg Documented by: Results - Results Labs/Vitals: Laboratory Last Values WBC 8.1 K/mm3 (4.5-11.0) 11/15/20 10:44 RBC 5.51 M/mm3 (3.65-5.03) H 11/15/20 10:44 Hgb 15.5 gm/dl (11.8-15.2) H 11/15/20 10:44 Hct 46.6 % (35.5-45.6) H 11/15/20 10:44 MCV 85 fl (84-94) 11/15/20 10:44 MCH 28 pg (28-32) 11/15/20 10:44 MCHC 33 % (32-34) 11/15/20 10:44 RDW 14.2 % (13.2-15.2) 11/15/20 10:44 Plt Count 310 K/mm3 (140-440) 11/15/20 10:44 Lymph % (Auto) 26.9 % (13.4-35.0) 11/15/20 10:44 [place] % (Auto) 9.4 % (0.0-7.3) H 11/15/20 10:44 Eos % (Auto) 0.9 % (0.0-4.3) 11/15/20 10:44 Baso % (Auto) 0.7 % (0.0-1.8) 11/15/20 10:44 Lymph # (Auto) 2.2 K/mm3 (1.2-5.4) 11/15/20 10:44 [place] # (Auto) 0.8 K/mm3 (0.0-0.8) 11/15/20 10:44 Eos # (Auto) 0.1 K/mm3 (0.0-0.4) 11/15/20 10:44 Baso # (Auto) 0.1 K/mm3 (0.0-0.1) 11/15/20 10:44 Seg Neutrophils % 62.1 % (40.0-70.0) 11/15/20 10:44 Seg Neutrophils # 5.1 K/mm3 (1.8-7.7) 11/15/20 10:44 Sodium 137 mmol/L (137-145) 11/15/20 10:44 Potassium 3.9 mmol/L (3.6-5.0) 11/15/20 10:44 Chloride 99.9 mmol/L (98-107) 11/15/20 10:44 Carbon Dioxide 27 mmol/L (22-30) 11/15/20 10:44 Anion Gap 14 mmol/L 11/15/20 10:44 BUN 20 mg/dL (9-20) 11/15/20 10:44 Creatinine 1.0 mg/dL (0.8-1.3) 11/15/20 10:44 Estimated GFR > 60 ml/min 11/15/20 10:44 BUN/Creatinine Ratio 20 % 11/15/20 10:44 Glucose 114 mg/dL (75-100) H 11/15/20 10:44 POC Glucose 131 mg/dL (70-105) H 11/15/20 08:42 Hemoglobin A1c 5.5 % (4-6) 11/15/20 10:44 Calcium 9.2 mg/dL (8.4-10.2) 11/15/20 10:44 Total Bilirubin 0.30 mg/dL (0.1-1.2) 11/15/20 10:44 AST 19 units/L (5-40) 11/15/20 10:44 ALT 16 units/L (7-56) 11/15/20 10:44 Alkaline Phosphatase 85 units/L (35-129) 11/15/20 10:44 Total Protein 7.2 g/dL (6.3-8.2) 11/15/20 10:44 Albumin 4.0 g/dL (3.9-5) 11/15/20 10:44 Albumin/Globulin Ratio 1.3 % 11/15/20 10:44 Triglycerides 183 mg/dL (2-149) H 11/15/20 10:44 Cholesterol 190 mg/dL (50-199) 11/15/20 10:44 LDL Cholesterol Direct 108 mg/dL (50-130) 11/15/20 10:44 HDL Cholesterol 57 mg/dL (40-59) 11/15/20 10:44 Cholesterol/HDL Ratio 3.33 % 11/15/20 10:44 TSH 6.840 mlU/mL (0.270-4.200) H 11/15/20 10:44 Last Vital Signs Temp 97.9 F 11/22/20 21:00 Pulse 56 L 11/22/20 21:00 Resp 18 11/22/20 21:00 BP 124/56 11/22/20 21:00 Pulse Ox 96 11/22/20 21:00
[2020-11-23] MEDS: DONEPEZIL 10 MG TAB PO SCH (21:24)
[2020-11-23] MEDS: GABAPENTIN 300 MG CAP PO SCH (21:25)
[2020-11-23] MEDS: traZODone 50 MG TAB PO SCH (21:25)
[2020-11-23] MEDS: MELATONIN 5 MG TAB PO PRN (21:26)
[2020-11-24] MEDS: LEVOTHYROXINE 50 MCG TAB PO SCH (06:42)
[2020-11-24] MEDS: POTASSIUM CHLORIDE ER 10 MEQ TAB PO SCH (09:00)
[2020-11-24] MEDS: FUROSEMIDE 20 MG TAB PO SCH (09:00)
[2020-11-24] MEDS: CALCIUM CARBONATE/VITAMIN D3 500 MG-200 UNIT TAB PO SCH ×2 (09:00→21:31)
[2020-11-24] MEDS: CHOLECALCIFEROL (VIT D3) 5,000 UNIT TAB PO SCH (09:00)
[2020-11-24] MEDS: DIVALPROEX DR 125 MG TAB PO SCH ×2 (09:00→21:31)
[2020-11-24] MEDS: risperiDONE 1 MG TAB PO SCH ×2 (09:00→21:31)
--- NOTE | 2020-11-24 09:31 | Progress Note ---
Subjective Date of service: 11/24/20 Principal diagnosis: (1) Schizophrenia in remission Subjective Comment: Per Nurse note: The nurse caring for the patient states he has been laughing and talking to himself The patient was seen today, he is calm and pleasant. He says he feels good. The patient denies SI/HI or hallucinations, although nurse reports him talking to himself. Reason for continuing acute in patient psychiatric hospitalization: The patient hasn't had any episodes of agitation. Him talking to himself does not appear to posing any threat or harm. Will monitor overnight for any events and plan for a safe discharge tomorrow REVIEW OF SYSTEMS Constitutional: Negative for weight loss ENT: Negative for stridor Respiratory: Negative for cough or hemoptysis All other systems reviewed and are negative MENTAL STATUS EXAMINATION General Appearance and Behavior: Age appropriate, good hygiene, wearing appropriate clothes, poor eye contact, cooperative with questioning. Cooperation: Engaged Psychomotor Behavior: Psychomotor normal Mood: so-so Affect and affective range: congruent with mood Thought Process:illogical Thought Content: visual and verbal Hallucinations Speech: Normal rate volume and rythm Intellectual Functioning: normal Suicidal Ideation: Denies SI Homicidal Ideation: denies Impulse Control: Impaired Insight and Judgment: Impaired Memory: Short term memory normal Attention: Divided attention impaired Orientation: Alert, oriented Assessment and Plan (1) Schizophrenia in remission Current Visit: Yes Status: Acute F20.9 Treatment Plan Patient admitted for inpatient psychiatric evaluation, medication adjustment and close monitoring The patient's behavior, mood, sleep and appetite will be closely monitored. Patient enrolled in individual and group therapeutic sessions and encouraged to attend. Patient provided with a safe and structured environment. Patient's physical health needs will be addressed by the Hospitalist. Hospitalist Consulted Labs including CBC, CMP, Lipid profile and Hemoglobin A1C levels ordered for baseline reference Social Assessment will be completed and the Alum Plant Operator will work with patient and family to ensure a suitable and safe disposition Medication adjustment will be made as clinically indicated No changes today Usual Wellness Jew/Preservation: - Start Trazodone 50 mg po QHS & 50 mg po QHS PRN between 10 PM & 2 AM for insomnia - Start Melatonin 5 mg po QHS to promote circadian rhythm - Start [place]-3 for brain health, reduce impulsivity, and as adjunctive treatment for mood disorder, continue upon discharge given overall benefits. - Start B1 prophylaxis with 200 mg po for 5 days The patient agreed on the treatment plan, understood the risk, benefit, alternative treatment, potential consequence of no treatment, and gave informed consent. Estimated days: 4 Post hospital care: primary care provider, psychiatric provider Medications and Allergies Allergies Allergy/AdvReac Type Severity Reaction Status Date / Time No Known Allergies Allergy Verified 11/03/17 10:49 Home Medications Medication Instructions Recorded Confirmed Last Taken Type Acetaminophen [Tylenol Extra 1,000 mg PO Q8HR PRN 11/13/20 11/15/20 Unknown History Strength] Calcium Carbonate/Vitamin D3 1 each PO Q12HR 11/13/20 11/15/20 Unknown History [Calcium 500 mg Chewable Tablet] Cholecalciferol (Vitamin D3) 5,000 unit PO ONCE 11/13/20 11/15/20 Unknown History [Vitamin D3] Donepezil HCl [Donepezil HCl Odt] 10 mg PO QHS 11/13/20 11/15/20 Unknown History Furosemide [Lasix] 20 mg PO QDAY 11/13/20 11/15/20 Unknown History Gabapentin [Neurontin] 300 mg PO QHS 11/13/20 11/15/20 Unknown History Levothyroxine [Synthroid] 25 mcg PO QAM 11/13/20 11/15/20 Unknown History Magnesium Hydroxide [Milk of 30 ml PO Q8HR PRN 11/13/20 11/15/20 Unknown History Magnesia] Melatonin [Melatonin 3MG TAB] 3 mg PO Q24HR PRN 11/13/20 11/15/20 Unknown History Memantine [Namenda] 10 mg PO BID 11/13/20 11/15/20 Unknown History Polyethylene Glycol 1450 17 gm MC QDAY PRN 11/13/20 11/15/20 Unknown History Potassium Chloride [K-Dur] 10 meq PO QDAY 11/13/20 11/15/20 Unknown History risperiDONE [RisperDAL] 0.5 mg PO QHS 11/13/20 11/15/20 Unknown History Active Meds: Active Medications Acetaminophen (Acetaminophen 500 Mg Tab) 1,000 mg PO Q8HR PRN PRN Reason: Pain , Severe (7-10) Calcium/Vitamin D (Calcium Carbonate/Vitamin D3 500 Mg-200 Unit Tab) 1 each PO Q12HR [facility] Last Admin: 11/24/20 09:00 Dose: 1 each Documented by: Cholecalciferol (Cholecalciferol (Vit D3) 5,000 Unit Tab) 5,000 unit PO DAILY [facility] Last Admin: 11/24/20 09:00 Dose: 5,000 unit Documented by: Divalproex Sodium (Divalproex Dr 125 Mg Tab) 125 mg PO BID [facility] Last Admin: 11/24/20 09:00 Dose: 125 mg Documented by: Donepezil HCl (Donepezil 10 Mg Tab) 10 mg PO QHS [facility] Last Admin: 11/23/20 21:24 Dose: 10 mg Documented by: Furosemide (Furosemide 20 Mg Tab) 20 mg PO QDAY [facility] Last Admin: 11/24/20 09:00 Dose: 20 mg Documented by: Gabapentin (Gabapentin 300 Mg Cap) 300 mg PO QHS [facility] Last Admin: 11/23/20 21:25 Dose: 300 mg Documented by: Levothyroxine Sodium (Levothyroxine 50 Mcg Tab) 50 mcg PO DAILY@0600 [facility] Last Admin: 11/24/20 06:42 Dose: 50 mcg Documented by: Magnesium Hydroxide (Magnesium Hydroxide (Mom) Oral Liqd Udc) 30 ml PO Q8HR PRN PRN Reason: Constipation Melatonin (Melatonin 5 Mg Tab) 5 mg PO QHS PRN PRN Reason: Insomnia Last Admin: 11/23/20 21:26 Dose: 5 mg Documented by: Memantine (Memantine 10 Mg Tab) 10 mg PO BID [facility] Last Admin: 11/23/20 21:25 Dose: 10 mg Documented by: Polyethylene Glycol (Polyethylene Glycol 3350 17 Gm Powder) 17 gm PO QDAY PRN PRN Reason: Constipation Potassium Chloride (Potassium Chloride Er 10 Meq Tab) 10 meq PO QDAY [facility] Last Admin: 11/24/20 09:00 Dose: 10 meq Documented by: Risperidone (Risperidone 1 Mg Tab) 1 mg PO BID [facility] Last Admin: 11/24/20 09:00 Dose: 1 mg Documented by: Trazodone HCl (Trazodone 50 Mg Tab) 50 mg PO QHS [facility] Last Admin: 11/23/20 21:25 Dose: 50 mg Documented by: Results - Results Labs/Vitals: Laboratory Last Values WBC 8.1 K/mm3 (4.5-11.0) 11/15/20 10:44 RBC 5.51 M/mm3 (3.65-5.03) H 11/15/20 10:44 Hgb 15.5 gm/dl (11.8-15.2) H 11/15/20 10:44 Hct 46.6 % (35.5-45.6) H 11/15/20 10:44 MCV 85 fl (84-94) 11/15/20 10:44 MCH 28 pg (28-32) 11/15/20 10:44 MCHC 33 % (32-34) 11/15/20 10:44 RDW 14.2 % (13.2-15.2) 11/15/20 10:44 Plt Count 310 K/mm3 (140-440) 11/15/20 10:44 Lymph % (Auto) 26.9 % (13.4-35.0) 11/15/20 10:44 [place] % (Auto) 9.4 % (0.0-7.3) H 11/15/20 10:44 Eos % (Auto) 0.9 % (0.0-4.3) 11/15/20 10:44 Baso % (Auto) 0.7 % (0.0-1.8) 11/15/20 10:44 Lymph # (Auto) 2.2 K/mm3 (1.2-5.4) 11/15/20 10:44 [place] # (Auto) 0.8 K/mm3 (0.0-0.8) 11/15/20 10:44 Eos # (Auto) 0.1 K/mm3 (0.0-0.4) 11/15/20 10:44 Baso # (Auto) 0.1 K/mm3 (0.0-0.1) 11/15/20 10:44 Seg Neutrophils % 62.1 % (40.0-70.0) 11/15/20 10:44 Seg Neutrophils # 5.1 K/mm3 (1.8-7.7) 11/15/20 10:44 Sodium 137 mmol/L (137-145) 11/15/20 10:44 Potassium 3.9 mmol/L (3.6-5.0) 11/15/20 10:44 Chloride 99.9 mmol/L (98-107) 11/15/20 10:44 Carbon Dioxide 27 mmol/L (22-30) 11/15/20 10:44 Anion Gap 14 mmol/L 11/15/20 10:44 BUN 20 mg/dL (9-20) 11/15/20 10:44 Creatinine 1.0 mg/dL (0.8-1.3) 11/15/20 10:44 Estimated GFR > 60 ml/min 11/15/20 10:44 BUN/Creatinine Ratio 20 % 11/15/20 10:44 Glucose 114 mg/dL (75-100) H 11/15/20 10:44 POC Glucose 131 mg/dL (70-105) H 11/15/20 08:42 Hemoglobin A1c 5.5 % (4-6) 11/15/20 10:44 Calcium 9.2 mg/dL (8.4-10.2) 11/15/20 10:44 Total Bilirubin 0.30 mg/dL (0.1-1.2) 11/15/20 10:44 AST 19 units/L (5-40) 11/15/20 10:44 ALT 16 units/L (7-56) 11/15/20 10:44 Alkaline Phosphatase 85 units/L (35-129) 11/15/20 10:44 Total Protein 7.2 g/dL (6.3-8.2) 11/15/20 10:44 Albumin 4.0 g/dL (3.9-5) 11/15/20 10:44 Albumin/Globulin Ratio 1.3 % 11/15/20 10:44 Triglycerides 183 mg/dL (2-149) H 11/15/20 10:44 Cholesterol 190 mg/dL (50-199) 11/15/20 10:44 LDL Cholesterol Direct 108 mg/dL (50-130) 11/15/20 10:44 HDL Cholesterol 57 mg/dL (40-59) 11/15/20 10:44 Cholesterol/HDL Ratio 3.33 % 11/15/20 10:44 TSH 6.840 mlU/mL (0.270-4.200) H 11/15/20 10:44 Last Vital Signs Temp 98.1 F 11/23/20 20:00 Pulse 61 11/24/20 07:21 Resp 18 11/24/20 07:21 BP 114/50 11/24/20 07:21 Pulse Ox 98 11/24/20 07:21
[2020-11-24] MEDS: MEMANTINE 10 MG TAB PO SCH ×2 (09:56→21:31)
[2020-11-24] MEDS: traZODone 50 MG TAB PO SCH (21:31)
[2020-11-24] MEDS: DONEPEZIL 10 MG TAB PO SCH (21:31)
[2020-11-24] MEDS: GABAPENTIN 300 MG CAP PO SCH (21:31)
[2020-11-25] MEDS: LEVOTHYROXINE 50 MCG TAB PO SCH (06:05)
--- NOTE | 2020-11-25 10:16 | Progress Note ---
Subjective Date of service: 11/25/20 Principal diagnosis: (1) Schizophrenia in remission Subjective Comment: The patient was seen today, he is sitting in the dayroom. He is calm and polite. He looks tired but says he feels good. He says he slept good. The patient denies SI/HI or hallucinations. Reason for continuing acute in patient psychiatric hospitalization: The patient presents well, and is clear from a psych standpoint. He is awaiting COVID test for placement. REVIEW OF SYSTEMS Constitutional: Negative for weight loss ENT: Negative for stridor Respiratory: Negative for cough or hemoptysis All other systems reviewed and are negative MENTAL STATUS EXAMINATION General Appearance and Behavior: Age appropriate, good hygiene, wearing appropriate clothes, poor eye contact, cooperative with questioning. Cooperation: Engaged Psychomotor Behavior: Psychomotor normal Mood: so-so Affect and affective range: congruent with mood Thought Process:illogical Thought Content: visual and verbal Hallucinations Speech: Normal rate volume and rythm Intellectual Functioning: normal Suicidal Ideation: Denies SI Homicidal Ideation: denies Impulse Control: Impaired Insight and Judgment: Impaired Memory: Short term memory normal Attention: Divided attention impaired Orientation: Alert, oriented Assessment and Plan (1) Schizophrenia in remission Current Visit: Yes Status: Acute F20.9 Treatment Plan Patient admitted for inpatient psychiatric evaluation, medication adjustment and close monitoring The patient's behavior, mood, sleep and appetite will be closely monitored. Patient enrolled in individual and group therapeutic sessions and encouraged to attend. Patient provided with a safe and structured environment. Patient's physical health needs will be addressed by the Hospitalist. Hospitalist Consulted Labs including CBC, CMP, Lipid profile and Hemoglobin A1C levels ordered for baseline reference Social Assessment will be completed and the [employer]eder will work with patient and family to ensure a suitable and safe disposition Medication adjustment will be made as clinically indicated No changes today Usual Wellness Anabaptism/Preservation: - Start Trazodone 50 mg po QHS & 50 mg po QHS PRN between 10 PM & 2 AM for insomnia - Start Melatonin 5 mg po QHS to promote circadian rhythm - Start [place]-3 for brain health, reduce impulsivity, and as adjunctive treatment for mood disorder, continue upon discharge given overall benefits. - Start B1 prophylaxis with 200 mg po for 5 days The patient agreed on the treatment plan, understood the risk, benefit, alternative treatment, potential consequence of no treatment, and gave informed consent. Estimated days: 2 Post hospital care: primary care provider, psychiatric provider Medications and Allergies Allergies Allergy/AdvReac Type Severity Reaction Status Date / Time No Known Allergies Allergy Verified 11/03/17 10:49 Home Medications Medication Instructions Recorded Confirmed Last Taken Type Acetaminophen [Tylenol Extra 1,000 mg PO Q8HR PRN 11/13/20 11/15/20 Unknown History Strength] Calcium Carbonate/Vitamin D3 1 each PO Q12HR 11/13/20 11/15/20 Unknown History [Calcium 500 mg Chewable Tablet] Cholecalciferol (Vitamin D3) 5,000 unit PO ONCE 11/13/20 11/15/20 Unknown History [Vitamin D3] Donepezil HCl [Donepezil HCl Odt] 10 mg PO QHS 11/13/20 11/15/20 Unknown History Furosemide [Lasix] 20 mg PO QDAY 11/13/20 11/15/20 Unknown History Gabapentin [Neurontin] 300 mg PO QHS 11/13/20 11/15/20 Unknown History Levothyroxine [Synthroid] 25 mcg PO QAM 11/13/20 11/15/20 Unknown History Magnesium Hydroxide [Milk of 30 ml PO Q8HR PRN 11/13/20 11/15/20 Unknown History Magnesia] Melatonin [Melatonin 3MG TAB] 3 mg PO Q24HR PRN 11/13/20 11/15/20 Unknown Histor y Memantine [Namenda] 10 mg PO BID 11/13/20 11/15/20 Unknown History Polyethylene Glycol 1450 17 gm MC QDAY PRN 11/13/20 11/15/20 Unknown History Potassium Chloride [K-Dur] 10 meq PO QDAY 11/13/20 11/15/20 Unknown History risperiDONE [RisperDAL] 0.5 mg PO QHS 11/13/20 11/15/20 Unknown History Active Meds: Active Medications Acetaminophen (Acetaminophen 500 Mg Tab) 1,000 mg PO Q8HR PRN PRN Reason: Pain , Severe (7-10) Calcium/Vitamin D (Calcium Carbonate/Vitamin D3 500 Mg-200 Unit Tab) 1 each PO Q12HR [facility] Last Admin: 11/24/20 21:31 Dose: 1 each Documented by: Cholecalciferol (Cholecalciferol (Vit D3) 5,000 Unit Tab) 5,000 unit PO DAILY [facility] Last Admin: 11/24/20 09:00 Dose: 5,000 unit Documented by: Divalproex Sodium (Divalproex Dr 125 Mg Tab) 125 mg PO BID [facility] Last Admin: 11/24/20 21:31 Dose: 125 mg Documented by: Donepezil HCl (Donepezil 10 Mg Tab) 10 mg PO QHS [facility] Last Admin: 11/24/20 21:31 Dose: 10 mg Documented by: Furosemide (Furosemide 20 Mg Tab) 20 mg PO QDAY [facility] Last Admin: 11/24/20 09:00 Dose: 20 mg Documented by: Gabapentin (Gabapentin 300 Mg Cap) 300 mg PO QHS [facility] Last Admin: 11/24/20 21:31 Dose: 300 mg Documented by: Levothyroxine Sodium (Levothyroxine 50 Mcg Tab) 50 mcg PO DAILY@0600 [facility] Last Admin: 11/25/20 06:05 Dose: 50 mcg Documented by: Magnesium Hydroxide (Magnesium Hydroxide (Mom) Oral Liqd Udc) 30 ml PO Q8HR PRN PRN Reason: Constipation Melatonin (Melatonin 5 Mg Tab) 5 mg PO QHS PRN PRN Reason: Insomnia Last Admin: 11/23/20 21:26 Dose: 5 mg Documented by: Memantine (Memantine 10 Mg Tab) 10 mg PO BID [facility] Last Admin: 11/24/20 21:31 Dose: 10 mg Documented by: Polyethylene Glycol (Polyethylene Glycol 3350 17 Gm Powder) 17 gm PO QDAY PRN PRN Reason: Constipation Potassium Chloride (Potassium Chloride Er 10 Meq Tab) 10 meq PO QDAY [facility] Last Admin: 11/24/20 09:00 Dose: 10 meq Documented by: Risperidone (Risperidone 1 Mg Tab) 1 mg PO BID [facility] Last Admin: 11/24/20 21:31 Dose: 1 mg Documented by: Trazodone HCl (Trazodone 50 Mg Tab) 50 mg PO QHS [facility] Last Admin: 11/24/20 21:31 Dose: 50 mg Documented by: Results - Results Labs/Vitals: Laboratory Last Values WBC 8.1 K/mm3 (4.5-11.0) 11/15/20 10:44 RBC 5.51 M/mm3 (3.65-5.03) H 11/15/20 10:44 Hgb 15.5 gm/dl (11.8-15.2) H 11/15/20 10:44 Hct 46.6 % (35.5-45.6) H 11/15/20 10:44 MCV 85 fl (84-94) 11/15/20 10:44 MCH 28 pg (28-32) 11/15/20 10:44 MCHC 33 % (32-34) 11/15/20 10:44 RDW 14.2 % (13.2-15.2) 11/15/20 10:44 Plt Count 310 K/mm3 (140-440) 11/15/20 10:44 Lymph % (Auto) 26.9 % (13.4-35.0) 11/15/20 10:44 [place] % (Auto) 9.4 % (0.0-7.3) H 11/15/20 10:44 Eos % (Auto) 0.9 % (0.0-4.3) 11/15/20 10:44 Baso % (Auto) 0.7 % (0.0-1.8) 11/15/20 10:44 Lymph # (Auto) 2.2 K/mm3 (1.2-5.4) 11/15/20 10:44 [place] # (Auto) 0.8 K/mm3 (0.0-0.8) 11/15/20 10:44 Eos # (Auto) 0.1 K/mm3 (0.0-0.4) 11/15/20 10:44 Baso # (Auto) 0.1 K/mm3 (0.0-0.1) 11/15/20 10:44 Seg Neutrophils % 62.1 % (40.0-70.0) 11/15/20 10:44 Seg Neutrophils # 5.1 K/mm3 (1.8-7.7) 11/15/20 10:44 Sodium 137 mmol/L (137-145) 11/15/20 10:44 Potassium 3.9 mmol/L (3.6-5.0) 11/15/20 10:44 Chloride 99.9 mmol/L (98-107) 11/15/20 10:44 Carbon Dioxide 27 mmol/L (22-30) 11/15/20 10:44 Anion Gap 14 mmol/L 11/15/20 10:44 BUN 20 mg/dL (9-20) 11/15/20 10:44 Creatinine 1.0 mg/dL (0.8-1.3) 11/15/20 10:44 Estimated GFR > 60 ml/min 11/15/20 10:44 BUN/Creatinine Ratio 20 % 11/15/20 10:44 Glucose 114 mg/dL (75-100) H 11/15/20 10:44 POC Glucose 131 mg/dL (70-105) H 11/15/20 08:42 Hemoglobin A1c 5.5 % (4-6) 11/15/20 10:44 Calcium 9.2 mg/dL (8.4-10.2) 11/15/20 10:44 Total Bilirubin 0.30 mg/dL (0.1-1.2) 11/15/20 10:44 AST 19 units/L (5-40) 11/15/20 10:44 ALT 16 units/L (7-56) 11/15/20 10:44 Alkaline Phosphatase 85 units/L (35-129) 11/15/20 10:44 Total Protein 7.2 g/dL (6.3-8.2) 11/15/20 10:44 Albumin 4.0 g/dL (3.9-5) 11/15/20 10:44 Albumin/Globulin Ratio 1.3 % 11/15/20 10:44 Triglycerides 183 mg/dL (2-149) H 11/15/20 10:44 Cholesterol 190 mg/dL (50-199) 11/15/20 10:44 LDL Cholesterol Direct 108 mg/dL (50-130) 11/15/20 10:44 HDL Cholesterol 57 mg/dL (40-59) 11/15/20 10:44 Cholesterol/HDL Ratio 3.33 % 11/15/20 10:44 TSH 6.840 mlU/mL (0.270-4.200) H 11/15/20 10:44 Last Vital Signs Temp 97.9 F 11/25/20 09:04 Pulse 56 L 11/25/20 09:04 Resp 16 11/25/20 09:04 BP 105/56 11/25/20 09:04 Pulse Ox 98 11/25/20 09:04
[2020-11-25] MEDS: risperiDONE 1 MG TAB PO SCH ×2 (10:27→21:14)
[2020-11-25] MEDS: CHOLECALCIFEROL (VIT D3) 5,000 UNIT TAB PO SCH (10:27)
[2020-11-25] MEDS: FUROSEMIDE 20 MG TAB PO SCH (10:27)
[2020-11-25] MEDS: CALCIUM CARBONATE/VITAMIN D3 500 MG-200 UNIT TAB PO SCH ×2 (10:27→21:14)
[2020-11-25] MEDS: MEMANTINE 10 MG TAB PO SCH ×2 (10:27→21:14)
[2020-11-25] MEDS: DIVALPROEX DR 125 MG TAB PO SCH ×2 (10:27→21:14)
[2020-11-25] MEDS: POTASSIUM CHLORIDE ER 10 MEQ TAB PO SCH (10:27)
[2020-11-25] MEDS: GABAPENTIN 300 MG CAP PO SCH (21:14)
[2020-11-25] MEDS: traZODone 50 MG TAB PO SCH (21:14)
[2020-11-25] MEDS: DONEPEZIL 10 MG TAB PO SCH (21:14)
[2020-11-26] MEDS: LEVOTHYROXINE 50 MCG TAB PO SCH (06:10)
[2020-11-26] MEDS: risperiDONE 1 MG TAB PO SCH (09:07)
[2020-11-26] MEDS: FUROSEMIDE 20 MG TAB PO SCH (09:07)
[2020-11-26] MEDS: POTASSIUM CHLORIDE ER 10 MEQ TAB PO SCH (09:07)
[2020-11-26] MEDS: DIVALPROEX DR 125 MG TAB PO SCH (09:07)
[2020-11-26] MEDS: MEMANTINE 10 MG TAB PO SCH (09:07)
[2020-11-26] MEDS: CALCIUM CARBONATE/VITAMIN D3 500 MG-200 UNIT TAB PO SCH (09:07)
[2020-11-26] MEDS: CHOLECALCIFEROL (VIT D3) 5,000 UNIT TAB PO SCH (09:08)
--- NOTE | 2020-11-26 10:14 | Discharge Summary ---
Providers - Providers Date of Admission: 11/15/20 08:07 Date of discharge: 11/26/20 Attending physician: MACARIO REYNOSO MD 11/15/20 07:22 Consult to Physician [CONS] Routine Comment: Consulting Provider: ELIZABETH LORENZO Physician Instructions: Manage medical condition Reason For Exam: Consult Primary care physician: ELIZABETH LORENZO Hospitalization Reason for admission: psychosis Admitting Diagnosis: F20.9 - SCHIZOPHRENIA, UNSPECIFIED Condition: Stable Disposition: -01 TO HOME OR SELFCARE Time spent for discharge: 38 Allergies/Adverse Reactions: Allergies No Known Allergies Allergy (Verified 11/03/17 10:49) Vital Signs: Last Vital Signs Temp 97.8 F 11/25/20 22:00 Pulse 53 L 11/25/20 22:00 Resp 18 11/25/20 22:00 BP 105/56 11/25/20 22:00 Pulse Ox 95 11/25/20 22:00 Last Lab: Laboratory Last Values WBC 8.1 K/mm3 (4.5-11.0) 11/15/20 10:44 RBC 5.51 M/mm3 (3.65-5.03) H 11/15/20 10:44 Hgb 15.5 gm/dl (11.8-15.2) H 11/15/20 10:44 Hct 46.6 % (35.5-45.6) H 11/15/20 10:44 MCV 85 fl (84-94) 11/15/20 10:44 MCH 28 pg (28-32) 11/15/20 10:44 MCHC 33 % (32-34) 11/15/20 10:44 RDW 14.2 % (13.2-15.2) 11/15/20 10:44 Plt Count 310 K/mm3 (140-440) 11/15/20 10:44 Lymph % (Auto) 26.9 % (13.4-35.0) 11/15/20 10:44 [place] % (Auto) 9.4 % (0.0-7.3) H 11/15/20 10:44 Eos % (Auto) 0.9 % (0.0-4.3) 11/15/20 10:44 Baso % (Auto) 0.7 % (0.0-1.8) 11/15/20 10:44 Lymph # (Auto) 2.2 K/mm3 (1.2-5.4) 11/15/20 10:44 [place] # (Auto) 0.8 K/mm3 (0.0-0.8) 11/15/20 10:44 Eos # (Auto) 0.1 K/mm3 (0.0-0.4) 11/15/20 10:44 Baso # (Auto) 0.1 K/mm3 (0.0-0.1) 11/15/20 10:44 Seg Neutrophils % 62.1 % (40.0-70.0) 11/15/20 10:44 Seg Neutrophils # 5.1 K/mm3 (1.8-7.7) 11/15/20 10:44 Sodium 137 mmol/L (137-145) 11/15/20 10:44 Potassium 3.9 mmol/L (3.6-5.0) 11/15/20 10:44 Chloride 99.9 mmol/L (98-107) 11/15/20 10:44 Carbon Dioxide 27 mmol/L (22-30) 11/15/20 10:44 Anion Gap 14 mmol/L 11/15/20 10:44 BUN 20 mg/dL (9-20) 11/15/20 10:44 Creatinine 1.0 mg/dL (0.8-1.3) 11/15/20 10:44 Estimated GFR > 60 ml/min 11/15/20 10:44 BUN/Creatinine Ratio 20 % 11/15/20 10:44 Glucose 114 mg/dL (75-100) H 11/15/20 10:44 POC Glucose 131 mg/dL (70-105) H 11/15/20 08:42 Hemoglobin A1c 5.5 % (4-6) 11/15/20 10:44 Calcium 9.2 mg/dL (8.4-10.2) 11/15/20 10:44 Total Bilirubin 0.30 mg/dL (0.1-1.2) 11/15/20 10:44 AST 19 units/L (5-40) 11/15/20 10:44 ALT 16 units/L (7-56) 11/15/20 10:44 Alkaline Phosphatase 85 units/L (35-129) 11/15/20 10:44 Total Protein 7.2 g/dL (6.3-8.2) 11/15/20 10:44 Albumin 4.0 g/dL (3.9-5) 11/15/20 10:44 Albumin/Globulin Ratio 1.3 % 11/15/20 10:44 Triglycerides 183 mg/dL (2-149) H 11/15/20 10:44 Cholesterol 190 mg/dL (50-199) 11/15/20 10:44 LDL Cholesterol Direct 108 mg/dL (50-130) 11/15/20 10:44 HDL Cholesterol 57 mg/dL (40-59) 11/15/20 10:44 Cholesterol/HDL Ratio 3.33 % 11/15/20 10:44 TSH 6.840 mlU/mL (0.270-4.200) H 11/15/20 10:44 Core Measure Documentation - Palliative Care Palliative Care/ Comfort Measures: Not Applicable - Core Measures Any of the following diagnoses?: none Exam - Constitutional Vitals: Temp Pulse Resp BP Pulse Ox 97.8 F 53 L 18 105/56 95 11/25/20 22:00 11/25/20 22:00 11/25/20 22:00 11/25/20 22:00 11/25/20 22:00 General appearance: Present: no acute distress - EENT Eyes: Present: PERRL, EOM intact ENT: hearing intact, clear oral mucosa - Neck Neck: Present: supple, normal ROM - Respiratory Respiratory effort: normal Plan Activity: advance as tolerated Weight Bearing Status: Weight Bear as Tolerated Care Plan Goals: Maintain good and stable mental health Assessment: Schizophrenia Follow up with: ELIZABETH LORENZO MD [Primary Care Provider] - 7 Days Prescriptions: traZODone [Desyrel] 50 mg PO QHS #30 tablet Melatonin [Melatonin 5MG TAB] 5 mg PO QHS PRN #30 tablet PRN Reason: Insomnia Divalproex Dr [Depakote Dr] 125 mg PO BID #60 tablet risperiDONE [RisperDAL] 1 mg PO BID #60 tablet
[2020-11-26 15:42] VITALS: BP 128/58
== END 2020-11-26 17:00 | disposition home or self-care (01) | DRG 885 ==
LOC: UNDOADMIN 05:57 → 3A 05:57 → 5A 08:07
PROVIDERS: ADMIT Psychiatry & Neurology Psychiatry; ATTEND Psychiatry & Neurology Psychiatry
DX: F20.9 Schizophrenia, unspecified (principal); F01.51 Vascular dementia, unspecified severity, with behavioral disturbance; I12.9 Hypertensive chronic kidney disease with stage 1 through stage 4 chronic kidney disease, or unspecified chronic kidney disease; N18.9 Chronic kidney disease, unspecified; K21.9 Gastro-esophageal reflux disease without esophagitis; E03.9 Hypothyroidism, unspecified; I70.90 Unspecified atherosclerosis; Z20.822 Contact with and (suspected) exposure to COVID-19; K59.00 Constipation, unspecified; Z82.49 Family history of ischemic heart disease and other diseases of the circulatory system; Z79.899 Other long term (current) drug therapy
CPT/HCPCS: 36415; 80048; 80053; 80061; 80076; 80307; 80320; 81001; 82962; 83036; 84443; 85025; G0378; G0480; U0003